=== PATIENT | female | born 1965 | race African-American/Black ===

== ENCOUNTER → 2019-12-23 14:32 | Outpatient (BNVA) | payer OTHER, SELFPAY | PROVIDERS: PCP Internal Medicine; Referring Provider Internal Medicine; Visit Provider Obstetrics & Gynecology | DX: Z76.89 Persons encountering health services in other specified circumstances (principal) ==

== ENCOUNTER → 2020-04-21 11:18 | Outpatient (BNVA) | payer OTHER, SELFPAY | PROVIDERS: PCP Internal Medicine; Visit Provider Obstetrics & Gynecology ==

== ENCOUNTER 2020-06-29 14:10 | Outpatient (REF) | payer OTHER, SELFPAY ==
--- NOTE | ~2020-06-29 | MM_ITS ---
EXAMINATION: MM SCREENING DIGITAL BREAST TOMOSYNTHESIS, BILATERAL CLINICAL INFORMATION: Screening. Asymptomatic. The lifetime risk of breast cancer based on the Tyrer-Cuzick Model is 11%. COMPARISON: Mammography: 07/18/2018, 09/21/2015, 01/27/2014, 08/15/2013 TECHNIQUE: Digital breast tomosynthesis is performed in both the craniocaudal and mediolateral oblique views along with computer-aided detection (CAD). Synthesized 2D images are generated from the tomosynthesis. Additional bilateral exaggerated CC views and additional bilateral MLO views are provided. FINDINGS: The breasts are almost entirely fatty (ACR BI-RADS breast composition Category a). There are no significant masses, abnormal calcifications, or other abnormalities. There are scattered bilateral round, rim, and dermal calcifications. The axilla are unremarkable. No significant changes. MM/MM tomosynthesis screening BI IMPRESSION: No mammographic evidence of malignancy. ASSESSMENT: BI-RADS 2: Benign RECOMMENDATION: Routine annual mammography screening. This patient's information was entered into a reminder system with a target due date for their next mammogram.
== END 2020-06-29 14:11 | disposition home or self-care (01) ==
LOC: HO.MAMMO 14:10
PROVIDERS: Visit Provider Obstetrics & Gynecology
DX: Z12.31 Encounter for screening mammogram for malignant neoplasm of breast (principal)
CPT/HCPCS: 77063; 77067

== ENCOUNTER 2020-07-01 10:01 | Outpatient (REF) | payer OTHER, SELFPAY | END 2020-07-01 10:02 | disposition home or self-care (01) | LOC: HO.XRAY 10:01 | PROVIDERS: Visit Provider Internal Medicine | DX: Z13.89 Encounter for screening for other disorder (principal) ==

== ENCOUNTER 2020-07-10 06:58 | Emergency (ER) | payer OTHER, SELFPAY ==
--- NOTE | 2020-07-10 07:13 | ED.FEMALEGU ---
HPI - Female Genitourinary General Chief complaint: Urogenital-Female Stated complaint: QUEST UTI Time Seen by Provider: 07/10/20 07:13 Source: patient Mode of arrival: ambulatory Limitations: no limitations History of Present Illness MD elicited complaint: dysuria, UTI and pelvic pain Onset (ago): day(s) (2) Severity: moderate Female Urogenital Radiation: Suprapubic, LLQ and LRQ Quality of pain: sharp Consistency: intermittent Vaginal bleeding: none Urinary symptoms: Dysuria, Urgency, Frequency and Difficulty Urinating Exacerbating factors: urination Relieving factors: none Associated symptoms: fever (99.1), nausea and vomiting Treatment prior to arrival: none Related Data Home Medications Medication Instructions Recorded Confirmed citalopram 20 mg tablet 20 mg PO DAILY 04/21/20 07/10/20 Previous Rx's Medication Instructions Recorded oxybutynin chloride 5 mg tablet 5 mg PO BID #180 tab 02/04/20 albuterol sulfate 90 mcg/actuation 2 inh INHALATION Q6H PRN 30 Days 03/04/20 breath activated powder inhaler #1 ea hydroxyzine HCl 25 mg tablet 25 mg PO Q8H #252 tab 04/29/20 cyclobenzaprine 10 mg tablet 10 mg PO TID PRN 30 Days #90 tab 06/30/20 cefuroxime axetil 500 mg PO BID 10 Days #20 tab 07/10/20 ondansetron 4 mg PO Q8H PRN #20 tab 07/10/20 Allergies Allergy/AdvReac Type Severity Reaction Status Date / Time ibuprofen Allergy Intermediate stomach Verified 06/30/20 13:47 upset Iodinated Contrast Media Allergy Intermediate THROAT Verified 06/30/20 13:47 [IV CONTRAST] ITCHING trazodone Allergy Intermediate headache Verified 06/30/20 13:47 Review of Systems Review of Systems: Constitutional : No Weight loss, pos Fever, pos Chills ENT/Mouth : No sore throat, No Rhinorrhea Eyes: No Swelling, No Redness Cardiovascular : No Chest Pain, No SOB, NoEdema Respiratory : No Cough, No Sputum, No Wheezing Gastrointestinal : Positive Nausea, Positive Vomiting, no Diarrhea, positive abdominal Pain, No Hematochezia, No Melena Genitourinary : pos Dysuria, pos Urinary Frequency, No Hematuria, pos Urgency Musculoskeletal : No joint pain, No Myalgias, No Joint Swelling Skin : No Skin Lesions, No rash Neuro : No Weakness, No Numbness, No Dizziness, No Headache Psych : No Anxiety/Panic, No Depression Heme/Lymph: No Bruising, No Lymphadenopathy Endocrine : No Polyuria, No Polydipsia All other systems reviewed and are negative. [facility] Past Medical History Attestation statement: The following information was validated with the patient. Medical History B12 deficiency Depression Dysphagia Hip pain History of Templeton's palsy Insomnia Surgical History H/O gastric bypass History of section History of removal of cyst History of splenectomy History of tubal ligation Family History Family History Father Hypertension CVD (cardiovascular disease) Diabetes Mother Heart problem Acute kidney failure Brother Aneurysm Family/Other FH: mental illness Maternal Grandmother Colon cancer Social History Social History Alcohol intake: never Smoked in Last 30 Days: No Use of substances other than those prescribed or required for medical reasons: No Advance Directives: Yes Advance Directives Information Provided: Yes Advance Directives on File: No Physical Exam Vital Signs: Vital Signs: Last Vital Signs Temp 98.7 F 07/10/20 07:19 Pulse 115 H 07/10/20 07:19 Resp 17 07/10/20 07:19 BP 125/88 07/10/20 07:19 Pulse Ox 98 07/10/20 07:19 Body Mass Index 43.4 Appearance: Alert. Oriented X3. No acute distress. Eyes: Pupils equal, round and reactive to light. ENT: Pharynx normal. Neck: Normal inspection. Neck supple. CVS: Normal heart rate and rhythm. Pulses normal. Respiratory: No respiratory distress. Breath sounds normal. Abdomen: Soft and mild suprapubic ttp, multiple scars noted Back: no CVA ttp Skin: Skin warm and dry. Normal skin color. Normal skin turgor. Extremities: No lower extremity edema. No calf ttp Neuro: Oriented X 3. No motor deficit. No sensory deficit. Course Course Course Narrative: patient alert and oriented, answering questions appropriately, declines IV at this time and does not want imaging or IV abx we discussed the reasons why I would prefer IV ceftriaxone and prefer CT scan but she still declines. MDM - Female Genitourinary MDM Narrative Medical decision making narrative: 54 yo female with hx of complicated bariatric surgery resulting in 1 year hospital stay and revisions comes in with c/o dysuria, nausea/vomiting x 1, no real fever temp of 99.1 - no CVA ttp at this time will obtain basic labs, CT scan for obstruction/stone, UA, IVF, IV morphine for pain, dispo per results and findings. Lab Data Labs: Lab Results 07/10/20 Range/Units 07:41 Urine Color YELLOW Urine Appearance CLOUDY Urine pH 6.0 (5.0-8.0) Ur Specific [place] 1.010 (1.005-1.025) Urine Protein TRACE (NEG-TRACE) MG/DL Urine Glucose (UA) NEG (NEG) MG/DL Urine Ketones NEG (NEG) MG/DL Urine Blood 1+ H (NEG) Urine Nitrite NEG (NEG) Ur Leukocyte Esterase 3+ H (NEG) Urine RBC 0-2 (0) /HPF Urine WBC 76-150 H (0-4) /HPF Ur Squamous Epith Cells 1+ /LPF Urine Bacteria 2+ /LPF Discharge Plan Discharge Clinical Impression: Urinary tract infection Qualifiers: Urinary tract infection type: acute cystitis Hematuria presence: with hematuria Qualified Code(s): N30.01 - Acute cystitis with hematuria Patient Disposition: Home, Self-Care Instructions: Urinary Tract Infection in Women (ED) Additional Instructions: return to ED for any worsening symptoms or concerns return at any time if you feel worse Prescriptions: New cefuroxime axetil 500 mg tablet 500 mg PO BID 10 Days Qty: 20 RF: 0 ondansetron 4 mg tablet,disintegrating 4 mg PO Q8H PRN (Reason: nausea and vomiting) Qty: 20 RF: 0 No Action oxybutynin chloride 5 mg tablet 5 mg PO BID Qty: 180 RF: 1 ProAir RespiClick 90 mcg/actuation aerosol powdr breath activated 2 inh inhalation Q6H PRN (Reason: shortness of breath or wheezing) 30 Days Qty: 1 RF: 6 hydroxyzine HCl 25 mg tablet 25 mg PO Q8H Qty: 252 RF: 3 cyclobenzaprine 10 mg tablet 10 mg PO TID PRN (Reason: muscle spasm) 30 Days Qty: 90 RF: 4 citalopram [Celexa] 20 mg tablet 20 mg PO DAILY RF: 0
[2020-07-10 07:19] VITALS: BP 125/88; PULSE 115; RESP 17; TEMP 37.1; O2SAT 98; BMI 43.4
[2020-07-10 07:57] LABS: Glucose Urine UA NEG (NEG); Leukocyte Esterase Urine 3+ (NEG); Nitrite Urine NEG (NEG); UACC Culture Trigger YES; Urine Blood 1+ (NEG); Urine Ketones NEG (NEG); Urine Protein TRACE MG/DL (NEG-TRACE)
[2020-07-10 07:58] LABS: Appearance Urine CLOUDY; Color Urine YELLOW
--- NOTE | 2020-07-10 08:00 | PC.NURSE ---
Pt refuses morphine and zofran. 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
[2020-07-10 08:05] LABS: Bacteria Urine 2+ /LPF; RBC Urine 0-2 /HPF (0); Squamous Epithelial Cell Urine 1+ /LPF
--- NOTE | 2020-07-10 08:15 | PC.NURSE ---
Patient allows blood to be drawn but refuses iv. doctor is aware
[2020-07-10 08:30] LABS: MANUAL DIFF FLAG NO
[2020-07-10 08:34] LABS: Basophils Percent Auto 0.2 % (0-2); Eosinophils Percent Auto 0.2 % (0-4); Hematocrit 33.9 % (37-47); Hemoglobin 11.5 g/dl (12.0-16.0); Imm Gran Abs Auto 0.01 X10*3/uL (0.00-0.03); Imm Gran Pct Auto 0.2 % (0.0-0.4); Lymphocytes Absolute Auto 1.3 X10*3/uL (1.2-4.9); Lymphocytes Percent Auto 19.6 % (20-40); Mean Corpuscular HGB Conc 33.9 g/dl (31.0-35.0); Mean Corpuscular Hemoglobin 30.7 pg (27.0-33.0); Mean Corpuscular Volume 90.4 fL (80-98); Mean Platelet Volume 9.2 fL (9.4-12.3); Monocytes Absolute Auto 0.5 X10*3/uL (0.1-1.2); Monocytes Percent Auto 7.8 % (2-11); Neutrophils Absolute Auto 4.7 X10*3/uL (2.0-8.3); Platelet Count 308 X10*3/uL (160-400); Red Blood Count 3.75 X10*6/uL (4.20-5.50); Red Cell Distribution Width 16.7 % (11.0-16.0); White Blood Count 6.5 X10*3/uL (4.8-10.8)
[2020-07-10 08:57] LABS: Alanine Aminotransferase 18 U/L (0-31); Albumin Level 3.8 g/dL (3.5-5.0); Alkaline Phosphatase 129 U/L (39-117); Anion Gap 13 (12-20); Aspartate Amino Transferase 14 U/L (5-31); Bilirubin Direct 0.3 mg/dL (0.0-0.5); Bilirubin Total 0.6 mg/dL (0.0-1.0); Blood Urea Nitrogen 9 mg/dL (9-16); Calcium 8.7 mg/dL (8.4-10.2); Carbon Dioxide 26 mmol/L (22-29); Chloride 105 mmol/L (96-108); Creatinine Clr Calc Pharmacy 109.1; Estimated Glomerular Filt Rate > 60; Glucose Random 85 mg/dL (60-115); Lipase 14 U/L (8-78); Magnesium 2.2 mg/dL (1.6-2.6); Potassium 3.6 mmol/L (3.3-5.1); Sodium 140 mmol/L (135-145); Total Protein 6.9 g/dL (6.5-8.0)
--- NOTE | 2020-07-10 09:15 | PC.NURSE ---
Discharge instructions given to pt who verbalized understanding and denies any questions.
== END 2020-07-10 09:16 | disposition home or self-care (01) ==
PROVIDERS: Emergency Provider Emergency Medicine; PCP Internal Medicine
DX: N30.01 Acute cystitis with hematuria (principal); R50.9 Fever, unspecified; R11.2 Nausea with vomiting, unspecified; Z98.84 Bariatric surgery status; Z98.51 Tubal ligation status; Z90.81 Acquired absence of spleen
CPT/HCPCS: 36415; 80048; 80076; 81001; 81003; 83690; 83735; 85025; 87040; 87077; 87086; 87088; 87186; 87205; 99283; 99284

== ENCOUNTER 2020-07-30 11:04 | Emergency (ER) | payer OTHER, SELFPAY ==
[2020-07-30 11:43] VITALS: BP 117/81; PULSE 98; RESP 18; TEMP 36.6; O2SAT 99; BMI 42.7
--- NOTE | 2020-07-30 12:36 | ED_ITS ---
HPI - Female Genitourinary General Chief complaint: Recheck/Abnormal Lab/Rx Stated complaint: abnormal labs Time Seen by Provider: 07/30/20 12:24 Source: patient and old records reviewed Mode of arrival: ambulatory Limitations: no limitations History of Present Illness HPI Narrative: 54 yo female with hx of urinary urgency recently treated on 07/10 with cefuroxime for 14 days with 1/2 E. Coli she has been doing great since then no fevers, nausea/vomiting, flank pain, urinary symptoms, sent by PCP for ?repeat cultures though the patient completed 14 days of antibiotics and has no symptoms at this time at this time other than white vaginal discharge and itching MD elicited complaint: vaginal discharge and genital itching Pertinent past history: other (recent antibiotics) Onset (ago): day(s) (several days) Vaginal discharge: white Vaginal bleeding: none Exacerbating factors: none Relieving factors: none Associated symptoms: denies other symptoms Treatment prior to arrival: OTC vaginal cream Related Data Home Medications Medication Instructions Recorded Confirmed citalopram 20 mg tablet 20 mg PO DAILY 04/21/20 07/29/20 fluticasone 113 mcg-salmeterol 14 1 inh INHALATION BID 07/29/20 07/29/20 mcg/actuation breath activated powdr fluticasone propionate 50 1 spray INTRANASAL DAILY 07/29/20 07/29/20 mcg/actuation nasal spray,suspension Previous Rx's Medication Instructions Recorded oxybutynin chloride 5 mg tablet 5 mg PO BID #180 tab 02/04/20 albuterol sulfate 90 mcg/actuation 2 inh INHALATION Q6H PRN 30 Days 03/04/20 breath activated powder inhaler #1 ea hydroxyzine HCl 25 mg tablet 25 mg PO Q8H #252 tab 04/29/20 cyclobenzaprine 10 mg tablet 10 mg PO TID PRN 30 Days #90 tab 06/30/20 ondansetron 4 mg PO Q8H PRN #20 tab 07/10/20 fluconazole [Diflucan] 150 mg PO DAILY #1 tab 07/30/20 Allergies Allergy/AdvReac Type Severity Reaction Status Date / Time cefuroxime Allergy Intermediate rash Verified 07/29/20 11:56 ibuprofen Allergy Intermediate stomach Verified 07/29/20 11:51 upset Iodinated Contrast Media Allergy Intermediate THROAT Verified 07/29/20 11:51 [IV CONTRAST] ITCHING trazodone Allergy Intermediate headache Verified 07/29/20 11:51 Review of Systems Review of Systems: Constitutional : No Weight loss, No Fever, No Chills, No Fatigue, No Malaise ENT/Mouth : No sore throat, No Rhinorrhea Eyes: No Eye Pain, No Swelling, No Redness Cardiovascular : No Chest Pain, No SOB, No Dyspnea on Exertion, No Orthopnea, No Edema, No Palpitations Respiratory : No Cough, No Sputum, No Wheezing Gastrointestinal : No Nausea, No Vomiting, No Diarrhea, No Constipation, No abdominal Pain, No Hematochezia, No Melena Genitourinary : No Dysuria, No Urinary Frequency, No Hematuria, pos vaginal discharge white and itchy Musculoskeletal : No joint pain, No Myalgias, No Joint Swelling Skin : No Skin Lesions, pos rash Neuro : No Weakness, No Numbness, No Dizziness, No Headache Psych : No Anxiety/Panic, No Depression Heme/Lymph: No Bruising, No Bleeding,No Lymphadenopathy Endocrine : No Polyuria, No Polydipsia All other systems reviewed and are negative [facility] Past Medical History Attestation statement: The following information was validated with the patient. Medical History B12 deficiency Bacteremia Depression Dysphagia Hip pain History of Templeton's palsy Insomnia Surgical History H/O gastric bypass History of section History of removal of cyst History of splenectomy History of tubal ligation Family History Family History (Updated 07/29/20 @ 11:44 by CARA Harrison) Father Hypertension CVD (cardiovascular disease) Diabetes Mother Heart problem Acute kidney failure Brother Aneurysm Family/Other FH: mental illness Substance use disorder Maternal Grandmother Colon cancer Social History Social History Housing: House Alcohol intake: never Patient Tobacco Use Status: Never used Tobacco e-Cigarette/Vaping Use: Never Used Second Hand Smoke Exposure: No Patient : No service: No Current occupational status: unemployed Physical Exam 2 Vital Signs: Vital Signs: Last Vital Signs Temp 98 F 07/30/20 11:43 Pulse 98 07/30/20 11:43 Resp 18 07/30/20 11:43 BP 117/81 07/30/20 11:43 Pulse Ox 99 07/30/20 11:43 Body Mass Index 42.7 Appearance: Alert. Oriented X3. No acute distress. Eyes: Pupils equal, round and reactive to light. ENT: Pharynx normal. Neck: Normal inspection. Neck supple. flat shiny L sided linear lesions no vesicles, darker in color CVS: Normal heart rate and rhythm. Pulses normal. Respiratory: No respiratory distress. Breath sounds normal. Abdomen: Soft and nontender. Skin: Skin warm and dry. Normal skin color. Normal skin turgor. Extremities: No lower extremity edema. No calf ttp Neuro: Oriented X 3. No motor deficit. No sensory deficit. MDM - Female Genitourinary MDM Narrative Medical decision making narrative: 54 yo female with hx of urinary urgency recently treated on 07/10 with cefuroxime for 14 days with 1/2 E. Coli she has been doing great since then no fevers, nausea/vomiting, flank pain, urinary symptoms, sent by PCP for ?repeat cultures though the patient completed 14 days of antibiotics and has no symptoms at this time no signs of sepsis - at this time will repeat cultures and start on diflucan given her white discharge and vaginal itching, patient agrees, also c/o L neck resolving dermatitis rash - no signs of zoster or cellulitis Discharge Plan Discharge Clinical Impression: Candidiasis of vagina, Dermatitis Patient Disposition: Home, Self-Care Instructions: Yeast Infection (ED), Dermatitis (ED) Additional Instructions: return to ED for any worsening symptoms or concerns repeat blood cultures sent off if positive we will contact you Prescriptions: New fluconazole [Diflucan] 150 mg tablet 150 mg PO DAILY Qty: 1 RF: 0 No Action oxybutynin chloride 5 mg tablet 5 mg PO BID Qty: 180 RF: 1 ProAir RespiClick 90 mcg/actuation aerosol powdr breath activated 2 inh inhalation Q6H PRN (Reason: shortness of breath or wheezing) 30 Days Qty: 1 RF: 6 hydroxyzine HCl 25 mg tablet 25 mg PO Q8H Qty: 252 RF: 3 ondansetron 4 mg tablet,disintegrating 4 mg PO Q8H PRN (Reason: nausea and vomiting) Qty: 20 RF: 0 cyclobenzaprine 10 mg tablet 10 mg PO TID PRN (Reason: muscle spasm) 30 Days Qty: 90 RF: 4 fluticasone propionate 50 mcg/actuation spray,suspension 1 spray intranasal DAILY RF: 0 fluticasone propion-salmeterol 113-14 mcg/actuation aerosol powdr breath activated 1 inh inhalation BID RF: 0 citalopram [Celexa] 20 mg tablet 20 mg PO DAILY RF: 0
[2020-07-30] MEDS: Fluconazole 150 MG TABLET PO (13:35)
== END 2020-07-30 13:41 | disposition home or self-care (01) ==
LOC: HO.ED 12:58
PROVIDERS: Emergency Provider Emergency Medicine; PCP Internal Medicine
DX: B37.3 Candidiasis of vulva and vagina (principal); L30.9 Dermatitis, unspecified
CPT/HCPCS: 87040; 99283

== ENCOUNTER 2020-08-10 09:20 | Outpatient (REF) | payer OTHER, SELFPAY ==
--- NOTE | ~2020-08-10 | FL_ITS ---
EXAMINATION: FL BARIUM SWALLOW CLINICAL INFORMATION: Dysphagia COMPARISON: None TECHNIQUE: Barium swallow examination is performed using fluoroscopic evaluation in addition to multiple fluoroscopic spot views. The patient is imaged both upright and prone and using both thick and thin sulfate along with effervescent granules. Fluoroscopy time: 3.2 minutes DAP: 6.2 Gycm2 Images: 48 FINDINGS: Following oral administration of thick barium there is normal propagation of bolus from the oral cavity into the pharynx, stomach and small bowel. There is a prominent cervical esophageal web along the anterior wall partially obstructing the passage of thick barium. On oral administration of barium-coated turkey there is normal but slow mastication of the oral phase. On bolus reaching the posterior tongue there is slow antegrade flow seen through the esophagus into the stomach. Again visualized are prominent cervical esophageal web partially obstructing. There is complete obstruction to barium tablet in the cervical esophagus in the area of the cervical. It took quite a while for the barium tablet to be dissolved following oral administration of water for at least by 10-15 minutes. No hiatal hernia seen. There is no gastroesophageal reflux. FL/FL barium swallow IMPRESSION: Moderate-sized anterior cervical wall esophageal web causing moderate obstruction to liquids and barium tablet. Slow oral mastication likely secondary to fear of obstruction in the esophagus. Patient does regurgitate solid food when obstructed and this was seen during the present exam.
== END 2020-08-10 09:21 | disposition home or self-care (01) ==
LOC: HO.XRAY 09:20
PROVIDERS: PCP Internal Medicine; Visit Provider Internal Medicine
DX: R13.10 Dysphagia, unspecified (principal)
CPT/HCPCS: 74220

== ENCOUNTER 2020-11-11 16:32 | Emergency (ER) | payer OTHER, SELFPAY ==
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
[2020-11-11 17:30] VITALS: BP 148/89; PULSE 73; RESP 18; TEMP 36.6; O2SAT 100; BMI 41.6
[2020-11-11] MEDS: Cyclobenzaprine HCl 10 MG TABLET PO (18:47)
[2020-11-11] MEDS: Acetaminophen 325 MG TABLET 975 MG PO (18:47)
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
== END 2020-11-11 20:14 | disposition home or self-care (01) ==
PROVIDERS: Emergency Provider Internal Medicine; PCP Internal Medicine
DX: M54.5 Low back pain (principal); M25.551 Pain in right hip; Z79.899 Other long term (current) drug therapy
CPT/HCPCS: 72100; 73502; 99283; 99284

== ENCOUNTER → 2021-04-23 10:10 | Outpatient (BNVA) | payer OTHER, SELFPAY | PROVIDERS: PCP Internal Medicine; Referring Provider Internal Medicine; Visit Provider Nurse Practitioner | DX: K21.9 Gastro-esophageal reflux disease without esophagitis (principal); K22.2 Esophageal obstruction; R11.10 Vomiting, unspecified; R13.19 Other dysphagia | CPT/HCPCS: 99202 ==

== ENCOUNTER 2021-05-03 08:49 | Outpatient (REF) | payer OTHER, SELFPAY ==
[2021-05-03 09:31] LABS: MANUAL DIFF FLAG NO
[2021-05-03 09:51] LABS: Basophils Percent Auto 0.2 % (0-2); Hematocrit 35.4 % (37.0-47.0); Hemoglobin 11.5 g/dl (12.0-16.0); Imm Gran Abs Auto 0.01 X10*3/uL (0.00-0.03); Imm Gran Pct Auto 0.2 % (0.0-0.4); Lymphocytes Absolute Auto 1.8 X10*3/uL (1.2-4.9); Lymphocytes Percent Auto 35.1 % (20-40); Mean Corpuscular HGB Conc 32.5 g/dl (31.0-35.0); Mean Corpuscular Hemoglobin 30.5 pg (27.0-33.0); Mean Corpuscular Volume 93.9 fL (80.0-98.0); Mean Platelet Volume 8.5 fL (9.4-12.3); Monocytes Absolute Auto 0.4 X10*3/uL (0.1-1.2); Monocytes Percent Auto 7.8 % (2-11); NRBC Pct Auto 0.8 /100WBC (0.0-0.2); Neutrophils Absolute Auto 2.9 x10*3/uL (2.0-8.3); Neutrophils Percent Auto 56.7 % (45-73); Platelet Count 262 X10*3/uL (160-400); Red Blood Count 3.77 X10*6/uL (4.20-5.50); Red Cell Distribution Width 16.4 % (11.0-16.0); White Blood Count 5.1 X10*3/uL (4.8-10.8)
[2021-05-03 10:37] LABS: Alanine Aminotransferase 18 U/L (0-31); Alkaline Phosphatase 101 U/L (39-117); Anion Gap 13 (12-20); Aspartate Amino Transferase 14 U/L (5-31); Bilirubin Total 0.6 mg/dL (0.0-1.0); Blood Urea Nitrogen 12 mg/dL (9-16); Calcium 8.9 mg/dL (8.4-10.2); Carbon Dioxide 26 mmol/L (22-29); Chloride 106 mmol/L (96-108); Cholesterol 182 mg/dL; Estimated Glomerular Filt Rate > 60; Glucose Fasting 85 mg/dL (60-99); HDL Cholesterol 82 mg/dL; Iron 81 mcg/dL (30-160); LDL Cholesterol Calculated 92 mg/dl; Percent Iron Saturation 21 % (15-50); Potassium 3.8 mmol/L (3.3-5.1); Sodium 141 mmol/L (135-145); Total Iron Binding Capacity 378 mcg/dL (228-428); Total Protein 6.9 g/dL (6.5-8.0); Triglycerides 41 mg/dL; Unsaturated Iron Binding 297 ug/dL
[2021-05-03 11:00] LABS: Folate 17.6 ng/mL (> or = 4.0); Vitamin B12 602 pg/mL (200-900)
[2021-05-07 13:52] LABS: Vitamin D 25-OH, D2 <4 ng/mL; Vitamin D 25-OH, D3 19 ng/mL; Vitamin D 25-OH, Total 19 ng/mL (30-100)
== END 2021-05-03 08:50 | disposition home or self-care (01) ==
LOC: HO.LAB 08:49
PROVIDERS: Nurse Practitioner Acute Care; PCP Internal Medicine; Visit Provider Internal Medicine
DX: D64.9 Anemia, unspecified (principal); M25.559 Pain in unspecified hip; E78.5 Hyperlipidemia, unspecified; E53.8 Deficiency of other specified B group vitamins; E55.9 Vitamin D deficiency, unspecified
CPT/HCPCS: 36415; 80053; 80061; 82306; 82607; 82746; 83540; 85025

== ENCOUNTER 2021-06-03 19:02 | Emergency (ER) | payer OTHER, SELFPAY ==
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
--- NOTE | ~2021-06-03 | CT_ITS ---
EXAMINATION: CT LUMBAR SPINE WITHOUT CONTRAST CLINICAL INFORMATION: Low back pain. COMPARISON: Radiographs from the same date and CT dated 04/05/2017 TECHNIQUE: Multidetector volumetric imaging was obtained through the lumbar spine without contrast. Multiplanar reformatted images in coronal and sagittal orientations were submitted. This CT examination was performed using dose optimization techniques as appropriate, variously including the following: *Automated exposure control *Adjustment of mA and/or kV according to patient size (this includes techniques or standardized protocols for targeted exams where dose is matched to indication/reason for exam; i.e. extremities or head) *Use of iterative reconstruction technique DLP; 319 mGy-cm FINDINGS: Vertebral body heights are normal. No fracture or spondylolisthesis. No aggressive osseous lesions are identified. There is mild osteoarthritis in the imaged portions of the SI joints. Moderate degenerative disc disease is present in the at L4-L5 and L5-S1 with loss of intervertebral disc height, vacuum phenomenon, endplate irregularity, and endplate osteophytes. More mild degenerative disc disease at L3-L4. There is moderate to severe facet arthropathy on the right at L4-L5 and L5-S1 more moderate facet arthropathy at L3-L4. Mild facet arthropathy is present at other levels. A punctate calculus is evident in the left kidney. No obstructing stones are identified on these images. No hydronephrosis. Anastomotic aleksandra are present within the bowel. Spinal levels: L1-L2: No central canal or neural foraminal encroachment. Intervertebral disc appears relatively well-preserved. L2-L3: No central canal or neural foraminal encroachment. Intervertebral disc appears relatively well-preserved. L3-L4: Mild degenerative disc disease with a mild annular bulge producing indentation of the ventral thecal sac. No neural foraminal encroachment. Mild left and moderate right facet arthropathy. L4-L5: Mild to moderate degenerative disc disease with moderate to severe right facet arthropathy and more mild to moderate left facet arthropathy. There is a diffuse disc bulge which is asymmetric to the left, similar to the prior CT. This produces mild to moderate central canal stenosis with narrowing of the subarticular zones bilaterally as well as mild to moderate neural foraminal encroachment, right side greater than left . The bulge is similar in appearance to the prior study from 2018. L5-S1: Moderate degenerative disc disease. There is a left paracentral disc osteophytic protrusion which likely produces mass effect upon the traversing left S1 nerve root in the subarticular zone. This is evident on the prior study as well. There is mild left neural foraminal encroachment. More moderate to severe right neural foraminal encroachment is produced by a prominent right sided foraminal disc osteophyte complex. No prior. CT/CT lumbar spine wo con IMPRESSION: Multilevel degenerative disc disease in the lumbar spine, most notably at L4 L5 S1 with moderate to severe right-sided facet arthropathy at these levels. This appearance is similar to the prior study from 2018. Marked right L5-S1 neural foraminal encroachment at L5-S1 due to foraminal disc osteophyte complex, unchanged. Mass effect on the left S1 nerve root in the subarticular zone at this level is produced by a disc osteophytic protrusion and is also unchanged. Generalized disc bulge at L4-L5 with produces mild to moderate central canal stenosis with narrowing of the bilateral subarticular zones (L5 nerve root) as well as bilateral neural foraminal encroachment, not appreciably changed. No acute fracture or acute malalignment in the lumbar spine.
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
[2021-06-03 19:24] VITALS: BP 128/86; PULSE 82; RESP 18; TEMP 36.4; O2SAT 94; BMI 43.4
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
[2021-06-03] MEDS: Ketorolac Tromethamine 15 MG/ML VIAL 30 MG IM (23:31)
[2021-06-03] MEDS: Lidocaine 4 % Patch ADH..PATCH 1 PATCH TRANSDERMA (23:32)
[2021-06-03 23:44] VITALS: BP 130/85; PULSE 87; RESP 18; TEMP 36.6; O2SAT 96
--- NOTE | 2021-06-04 00:21 | PC.NURSE ---
Discharge pt for SARAY Fam, Review discharge instructions. pt verbalized understanding. pt discharged home.
== END 2021-06-04 00:22 | disposition home or self-care (01) ==
PROVIDERS: Emergency Provider Internal Medicine; PCP Internal Medicine
DX: M54.42 Lumbago with sciatica, left side (principal); M54.41 Lumbago with sciatica, right side; M54.2 Cervicalgia; R51.9 Headache, unspecified; Z79.899 Other long term (current) drug therapy
CPT/HCPCS: 70450; 72125; 72131; 96372; 99284; J1885

== ENCOUNTER 2021-07-05 12:58 | Outpatient (REF) | payer OTHER, SELFPAY ==
--- NOTE | ~2021-07-05 | MM_ITS ---
EXAMINATION: MM SCREENING DIGITAL BREAST TOMOSYNTHESIS, BILATERAL CLINICAL INFORMATION: Screening. Asymptomatic. The lifetime risk of breast cancer based on the Tyrer-Cuzick Model is 10%. COMPARISON: Mammography: 06/29/2020, 07/18/2018, 09/21/2015 TECHNIQUE: Digital breast tomosynthesis is performed in both the craniocaudal and mediolateral oblique views along with computer-aided detection (CAD). Synthesized 2D images are generated from the tomosynthesis. Additional bilateral CC views are provided. FINDINGS: The breasts are almost entirely fatty (ACR BI-RADS breast composition Category a). Background stromal and fibroglandular densities are stable. There is no interval mass or architectural abnormality. Again, there are scattered bilateral benign round, rim, as well as dermal calcifications grouped posterior medial inferior breasts. The axilla are unremarkable. There are no significant changes. MM/MM tomosynthesis screening BI IMPRESSION: No mammographic evidence of malignancy. ASSESSMENT: BI-RADS 2: Benign RECOMMENDATION: Routine annual mammography screening. This patient's information was entered into a reminder system with a target due date for their next mammogram.
== END 2021-07-05 12:59 | disposition home or self-care (01) ==
LOC: HO.MAMMO 12:58
PROVIDERS: PCP Internal Medicine; Visit Provider Obstetrics & Gynecology
DX: Z12.31 Encounter for screening mammogram for malignant neoplasm of breast (principal); K22.2 Esophageal obstruction; K21.9 Gastro-esophageal reflux disease without esophagitis; R13.19 Other dysphagia; K90.89 Other intestinal malabsorption
CPT/HCPCS: 77063; 77067; 99212

== ENCOUNTER 2021-08-04 13:00 | Outpatient (RCR) | payer OTHER, SELFPAY ==
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
== END 2021-09-03 11:33 | disposition home or self-care (01) ==
LOC: HO.PTWFD 13:00
PROVIDERS: Visit Provider Internal Medicine
DX: M54.50 Low back pain, unspecified (principal)
CPT/HCPCS: 97110; 97162; 97530; 97535

== ENCOUNTER 2021-08-06 20:24 | Emergency (ER) | payer OTHER, SELFPAY | END 2021-08-06 21:42 | disposition left against medical advice (07) | PROVIDERS: Emergency Provider Emergency Medicine; PCP Internal Medicine | DX: H92.09 Otalgia, unspecified ear (principal) ==

== ENCOUNTER 2021-10-07 13:48 | Outpatient (REF) | payer OTHER, SELFPAY ==
[2021-10-08 13:08] LABS: Influenza A PCR NEGATIVE (Negative); Influenza B PCR NEGATIVE (Negative); Resp Syncy Virus RNA Qual PCR NEGATIVE (Negative); SARS COV2 PCR INHOUSE NEGATIVE (Negative)
== END 2021-10-07 13:49 | disposition home or self-care (01) ==
LOC: HO.LNP 13:48
PROVIDERS: Visit Provider Hospitalist
DX: Z20.822 Contact with and (suspected) exposure to COVID-19 (principal)
CPT/HCPCS: 0241U

== ENCOUNTER 2021-10-09 09:59 | Emergency (ER) | payer OTHER, SELFPAY ==
[2021-10-09 10:07] VITALS: BP 126/96; PULSE 104; RESP 17; TEMP 36.2; O2SAT 99; BMI 38.0
[2021-10-09 10:38] LABS: COVID-19 Test Negative (Negative); IDNOW Serial# 16C4AD1C
--- NOTE | 2021-10-09 10:46 | ED.GENADULT ---
HPI - General Adult General Chief complaint: General Medical Stated complaint: Facial swelling/Fever Time Seen by Provider: 10/09/21 10:17 Source: patient Mode of arrival: ambulatory Limitations: no limitations History of Present Illness HPI narrative: Patient presents emergency department for evaluation of upper respiratory symptoms. She states for about 1 week she has been feeling unwell. Grandchildren have been sick with similar symptoms. She has developed nasal congestion, intermittent fevers. Since yesterday she has been feeling pain and swelling to the right side of her face particularly lateral to her nose. She did take Tylenol earlier this morning with some relief of her pain. Has green nasal discharge. Denies chills, neck pain, neck stiffness, chest pain, shortness of breath, difficulty breathing. Related Data Home Medications Medication Instructions Recorded Confirmed citalopram 20 mg tablet (Celexa) 20 mg PO DAILY 04/21/20 10/05/21 Previous Rx's Medication Instructions Recorded hydroxyzine HCl 25 mg tablet 25 mg PO Q8H #252 tabs 04/29/20 ondansetron 4 mg disintegrating 4 mg PO Q8H PRN nausea and 07/10/20 tablet vomiting #20 tabs acetaminophen 500 mg tablet 1,000 mg PO QID PRN fever or pain 11/11/20 (Tylenol Extra Strength) #14 tabs albuterol sulfate 90 mcg/actuation 2 inh inhalation Q6H PRN shortness 03/09/21 breath activated powder inhaler of breath or wheezing 30 days #1 ea (ProAir RespiClick) fluticasone 113 mcg-salmeterol 14 1 inh inhalation BID 30 days #1 ea 04/27/21 mcg/actuation breath activated powdr mecobalamin (vitamin B12) 1,000 1,000 mcg sublingual BEDTIME 90 04/27/21 mcg disintegrating days #90 tabs tablet,sublingual cholecalciferol (vitamin D3) 25 25 mcg PO DAILY 90 days #90 caps 06/08/21 mcg (1,000 unit) capsule fluticasone propionate 50 1 spray intranasal DAILY 30 days 06/12/21 mcg/actuation nasal #32 mL spray,suspension pantoprazole 40 mg tablet,delayed 40 mg PO BID 30 days #60 tabs 07/05/21 release (Protonix) sucralfate 1 gram tablet (Carafate) 1 g PO QNOON #30 tabs 07/05/21 oxybutynin chloride 5 mg tablet 5 mg PO BID #180 tabs 08/16/21 cyclobenzaprine 10 mg tablet 10 mg PO TID PRN muscle spasm 30 08/23/21 days #90 tabs amoxicillin 875 mg-potassium 1 tab PO Q12H 7 days #14 tabs 10/09/21 clavulanate 125 mg tablet Allergies Allergy/AdvReac Type Severity Reaction Status Date / Time cefuroxime Allergy Intermediate rash Verified 10/07/21 14:34 ibuprofen Allergy Intermediate stomach Verified 10/07/21 14:34 upset Iodinated Contrast Media Allergy Intermediate THROAT Verified 10/07/21 14:34 [IV CONTRAST] ITCHING trazodone Allergy Intermediate headache Verified 10/07/21 14:34 Review of Systems Review of Systems: Constitutional: No fever. No chills. No weakness. Positive fatigue. ENT/ Mouth: No Ear Pain, positive Nasal Congestion, positive sore throat, No Rhinorrhea, No Swallowing Difficulty Skin: No rash or itching. Cardiovascular: No chest pain. No palpitations. Respiratory: No shortness of breath. No cough. No sputum production. Gastrointestinal: No nausea. No vomiting. No diarrhea. No abdominal pain. Genitourinary: No burning micturition. No urinary frequency. Neurologic: No headache. No dizziness. No syncope. No numbness or tingling in the extremities. Musculoskeletal: No muscle pain. No back pain. No joint pain or stiffness. Yes all other systems are reviewed and are negative PMFSH Past Medical History Attestation statement: The following information was validated with the patient. Source: old records reviewed Medical History B12 deficiency Bacteremia Depression Dysphagia FABIAN (generalized anxiety disorder) Hip pain History of Templeton's palsy Hypovitaminosis D Insomnia Left foot pain Low back pain Mild recurrent major depression Moderate asthma Morbid obesity with BMI of 40.0-44.9, adult Urge urinary incontinence Surgical History H/O gastric bypass History of section History of colonoscopy History of endoscopy History of removal of cyst History of splenectomy History of tubal ligation Family History Family History Father Hypertension CVD (cardiovascular disease) Diabetes Mother Heart problem Acute kidney failure Brother Aneurysm Family/Other FH: mental illness Substance use disorder Maternal Grandmother Colon cancer Social History Social History Housing: House Alcohol intake: never Patient Tobacco Use Status: Never used Tobacco e-Cigarette/Vaping Use: Never Used Second Hand Smoke Exposure: No Advance Directives: Yes Advance Directives Information Provided: Yes Advance Directives on File: No service: No Current occupational status: unemployed Cognitive needs: No Hearing needs: No Vision needs: No Physical Exam ED Vital Signs: Vital Signs - 24 hr 10/09/21 10:07 Temperature 97.2 F Pulse Rate 104 H Respiratory Rate 17 Blood Pressure 126/96 H Pulse Oximetry 99 Oxygen Delivery Method Room Air BMI result Body Mass Index 38.0 Appearance: Alert.?Oriented to person, place and time. No acute distress.?Normal affect. Eyes: Pupils equal, round and reactive to light.? ENT: Pharynx normal.??Right maxillary sinus tenderness upon palpation TM normal bilaterally. Neck: Normal inspection.? Neck supple.?? CVS: Heart sounds normal. Normal heart rate and rhythm.? Pulses normal.?? Respiratory: No respiratory distress.? Lung sounds clear to auscultation bilaterally?? Abdomen: Soft and non-tender. Normoactive bowel sounds. No pulsatile mass.?? Skin: Skin warm and dry.? Normal skin color.? Extremities: No lower extremity edema.? Neuro: Moves all extremities spontaneously. Sensation intact bilaterally. No motor deficits Ambulates with normal steady gait. Course Course Course Narrative: Patient is a 56-year-old female presenting for evaluation of upper respiratory symptoms. COVID-19 testing negative. Physical exam consistent with acute maxillary sinusitis, not consistent with pneumonia. Well-appearing, nontoxic, afebrile, no tachypnea/hypoxia. Speaking clear full sentences, ambulatory with steady gait. Discussed conservative treatment including rest, hydration, Tylenol/ibuprofen as needed for fever and body aches, saline nasal spray, humidifier, pkli-axe-[id number] cold medication and provided with prescription for Augmentin. Advised to follow-up with primary care provider as needed, discussed reasons to return back to the emergency department. All questions were answered. Patient discharged home in stable condition. Medical Decision Making Medical Records Medical records reviewed: Yes I reviewed the patient's medical records. Lab Data Lab results reviewed: Yes I reviewed the patient's lab results. Labs: Lab Results 10/09/21 Range/Units 10:16 COVID-19 (BOB) Negative (Negative) COVID-19 Clin Com See Note Discharge Plan Discharge Clinical Impression: Acute maxillary sinusitis Patient Disposition: Home, Self-Care Instructions: Sinusitis (ED) Additional Instructions: You have been given a prescription for an antibiotic to treat your sinus infection, please complete this entire course. Your COVID-19 testing today was negative. Be sure to rest, stay well hydrated drinking plenty of fluids, eat small frequent meals. Tylenol/ibuprofen can be used as needed for fever/pain. Nzxr-jrb-[id number] cold medications may be helpful as well for symptoms. Saline nasal spray, humidifier may be helpful for nasal congestion. You may return to the emergency department with any new or worsening symptoms or concerns. Follow-up with your primary care provider as needed. Prescriptions: New amoxicillin-pot clavulanate 875-125 mg tablet 1 tab PO Q12H 7 Days Qty: 14 0RF No Action hydroxyzine HCl 25 mg tablet 25 mg PO Q8H Qty: 252 3RF fluticasone propion-salmeterol 113-14 mcg/actuation aerosol powdr breath activated 1 inh inhalation BID 30 Days Qty: 1 2RF mecobalamin (vitamin B12) 1,000 mcg tablet,disintegrating 1,000 mcg sublingual BEDTIME 90 Days Qty: 90 1RF Rx Instructions: place tablet under tongue and allow to dissolve for at least30 secs before swallowing cholecalciferol (vitamin D3) 25 mcg (1,000 unit) capsule 25 mcg PO DAILY 90 Days Qty: 90 1RF fluticasone propionate 50 mcg/actuation spray,suspension 1 spray intranasal DAILY 30 Days Qty: 32 2RF oxybutynin chloride 5 mg tablet 5 mg PO BID Qty: 180 1RF cyclobenzaprine 10 mg tablet 10 mg PO TID PRN (Reason: muscle spasm) 30 Days Qty: 90 4RF ondansetron 4 mg tablet,disintegrating 4 mg PO Q8H PRN (Reason: nausea and vomiting) Qty: 20 0RF acetaminophen [Tylenol Extra Strength] 500 mg tablet 1,000 mg PO QID PRN (Reason: fever or pain) Qty: 14 0RF ProAir RespiClick 90 mcg/actuation aerosol powdr breath activated 2 inh inhalation Q6H PRN (Reason: shortness of breath or wheezing) 30 Days Qty: 1 6RF citalopram [Celexa] 20 mg tablet 20 mg PO DAILY sucralfate [Carafate] 1 gram tablet 1 g PO QNOON Qty: 30 6RF pantoprazole [Protonix] 40 mg tablet,delayed release (DR/EC) 40 mg PO BID 30 Days Qty: 60 6RF Interventions: ED Discharge Assessment Last Done: 10/09/21 11:22 Discharge Date/Time: 10/09/21 11:23
== END 2021-10-09 11:23 | disposition home or self-care (01) ==
PROVIDERS: Emergency Provider Emergency Medicine; PCP Internal Medicine
DX: J01.00 Acute maxillary sinusitis, unspecified (principal); Z20.822 Contact with and (suspected) exposure to COVID-19
CPT/HCPCS: 87635; 99283

== ENCOUNTER 2021-10-11 08:58 | Day surgery (SDC) | payer OTHER, SELFPAY ==
[2021-10-05 11:09] VITALS: BMI 44.2
[2021-10-11 09:09] VITALS: BP 122/87; PULSE 103; RESP 18; TEMP 36.1; O2SAT 97
--- NOTE | 2021-10-11 09:09 | MHC.SHP ---
Pre-Procedural Eval Section A Date of Service: 10/11/21 Section B Chief Complaint: Esophageal obstruction,dysphagia,reflux disease Details of Present Illness: cervical web Relevant Family History (Specify if Yes): No Relevant Social History: None Present Medications: see Short Stay Collaborative assessment Medical History: Significant History (B12 deficiency Bacteremia Depression Dysphagia FABIAN (generalized anxiety disorder) Hip pain History of Templeton's palsy Hypovitaminosis D Insomnia Left foot pain Low back pain Mild recurrent major depression Moderate asthma Morbid obesity with BMI of 40.0-44.9, adult Urge urinary incontinence) History of Previous Operations: Relevant previous surgery/procedure and date(s) (H/O gastric bypass History of section History of colonoscopy History of endoscopy History of removal of cyst History of splenectomy History of tubal ligation) Allergies: Allergies Allergy/AdvReac Type Severity Reaction Status Date / Time cefuroxime Allergy Intermediate rash Verified 10/07/21 14:34 ibuprofen Allergy Intermediate stomach Verified 10/07/21 14:34 upset Iodinated Contrast Media Allergy Intermediate THROAT Verified 10/07/21 14:34 [IV CONTRAST] ITCHING trazodone Allergy Intermediate headache Verified 10/07/21 14:34 Review of Systems Sugical H&P ROS: Negative: Constitution, Cardiovascular, Respiratory, Neurological, Psychiatric, Hem-Onc, Allergic/Immunologic, Gastrointestinal, Genitourinary, Musculoskeletal, Integumentary, Endocrine and Eyes/Ears/Nose/Throat Exam Surgical H&P Exam: Normal: HEENT, Normal: Heart, Normal: Lungs, Normal: Extremities, Normal: Abdomen, Normal: Skin and Normal: Neurological Plan Diagnosis/Plan: Unchanged I have reviewed the history and physical and performed a pertinent physical examination on my patient. No changes have occurred unless specified.
[2021-10-11] MEDS: Lactated Ringers 1,000 ML 50 ML IVCONT (09:31)
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
--- NOTE | 2021-10-11 10:52 | W.PM.OPN ---
Operative Note Operative Note Date of Service: 10/11/21 Narrative: Procedure Description: EGD Indication: dysphagia, cervical web on imaging Anesthesia: MAC FLEXIBLE TRANSORAL UPPER GASTROINTESTINAL ENDOSCOPY UPPER ENDOSCOPY Consent: Indications for the procedure and potential complications of bleeding, perforation, reaction to medications and missed diagnosis were discussed with the patient and informed consent was obtained. Instrument: Olympus GIF H 190 J mid size upper endoscope Monitoring: Vital signs and clinical assessment, continuous EKG monitoring, Pulse oximetry, Carbon Dioxide monitoring and blood pressure monitoring were done throughout the procedure. Patient has history of gastric surgeries Procedure: The patient was placed in the left lateral decubitis position and pre-procedure medications were administered and a bite block was placed. The endoscope was inserted into the mouth and advanced under direct vision to the small bowel. A careful inspection was made as the upper endoscope was withdrawn. Findings and interventions are described below. Findings: Larynx:normal Esophagus: GE junction at 35 cm, diaphragm hiatus at 38 cm, consistent with 3 cm hiatal hernia. The proximal esophagus was dilated to 14.5 mm with resistance felt, some heme noted. There did not appear to be a gastric pouch, but rather a esophago jejunal anastomosis. Views were obscured by retained food. biopsies were taken of what looked like small bowel. Intervention: Biopsies as noted above, balloon dilation Impression/Findings: retained food in small bowel anastomosis esophageal stricture PLAN: can up dilate esophagus in few months if needed eat small meal, increase fluids with fluid check opiate use, might benefit from motegrity or reglan
[2021-10-11 11:17] VITALS: BP 130/83; PULSE 112; RESP 22; TEMP 36.1; O2SAT 98
[2021-10-11 11:32] VITALS: BP 125/85; PULSE 104; RESP 20; O2SAT 97
[2021-10-11 11:43] VITALS: BP 119/77; PULSE 102; RESP 18; O2SAT 98
[2021-10-11 11:57] VITALS: TEMP 36.1
== END 2021-10-11 12:27 | disposition home or self-care (01) ==
LOC: HO.SSS 08:59
PROVIDERS: PCP Internal Medicine; Visit Provider Internal Medicine Gastroenterology
PROC: 0DJ08ZZ Inspection of Upper Intestinal Tract, Via Natural or Artificial Opening Endoscopic (ICD-10-PCS; CPT 43235; principal; 2021-10-11 10:00)
DX: K22.2 Esophageal obstruction (principal); K21.9 Gastro-esophageal reflux disease without esophagitis; R78.81 Bacteremia; E55.9 Vitamin D deficiency, unspecified; E53.8 Deficiency of other specified B group vitamins; G47.00 Insomnia, unspecified; J45.909 Unspecified asthma, uncomplicated; F33.0 Major depressive disorder, recurrent, mild; F41.1 Generalized anxiety disorder; N39.41 Urge incontinence; E66.01 Morbid (severe) obesity due to excess calories; Z68.41 Body mass index [BMI] 40.0-44.9, adult; Z98.84 Bariatric surgery status; Z98.0 Intestinal bypass and anastomosis status; Z88.8 Allergy status to other drugs, medicaments and biological substances; Z91.041 Radiographic dye allergy status; Z90.81 Acquired absence of spleen; K44.9 Diaphragmatic hernia without obstruction or gangrene
CPT/HCPCS: 43249; 43239; 88305; C1726; J2250

== ENCOUNTER 2021-11-18 13:46 | Outpatient (REF) | payer OTHER, SELFPAY ==
[2021-11-18 16:47] LABS: Appearance Urine Clear; Color Urine Yellow; Glucose Urine UA Negative (Negative); Leukocyte Esterase Urine Small (1+) (Negative); Nitrite Urine Negative (Negative); PH 5.5 (5.0-9.0); Specific Gravity - Urine 1.025 (1.005-1.025); UMIC TRIGGER UACC YES; Urine Blood Negative (Negative); Urine Ketones Trace mg/dL (Negative); Urine Protein Negative (Neg-Trace)
[2021-11-18 17:18] LABS: Bacteria Urine None Seen (None Seen); Calcium Oxalate Crystals Urine Present; Hyaline Casts Urine 0-2 /LPF (0-2); RBC Urine 0-2 /HPF (0-2); Squamous Epithelial Cell Urine 0-2 /HPF (0-2); UACC Culture Trigger YES
== END 2021-11-18 13:47 | disposition home or self-care (01) ==
LOC: HO.LAB 13:46
PROVIDERS: PCP Internal Medicine; Visit Provider Nurse Practitioner
DX: K30 Functional dyspepsia (principal)
CPT/HCPCS: 81001; 87086; 99212

== ENCOUNTER → 2021-12-30 11:37 | Outpatient (BNVA) | payer OTHER, SELFPAY | PROVIDERS: PCP Internal Medicine; Visit Provider Nurse Practitioner | DX: K21.9 Gastro-esophageal reflux disease without esophagitis (principal); K22.2 Esophageal obstruction; K30 Functional dyspepsia; B37.2 Candidiasis of skin and nail | CPT/HCPCS: 99212 ==

== ENCOUNTER 2022-07-14 12:29 | Outpatient (REF) | payer OTHER, SELFPAY ==
[2022-07-14 18:22] LABS: CT PCR NOT DETECTED (Not Detect.); NG PCR NOT DETECTED (Not Detect.)
[2022-07-15 09:21] LABS: BV Int Neg Control Negative (Negative); BV Int Pos Control Positive (Positive)
[2022-07-20 07:58] LABS: HPV 16 RNA NOT DETECTED (NOT DETECTED); HPV mRNA E6/E7 rflx Detected (Not Detected)
== END 2022-07-14 12:30 | disposition home or self-care (01) ==
LOC: HO.LNP 12:29
PROVIDERS: PCP Internal Medicine; Visit Provider Obstetrics & Gynecology
DX: N89.8 Other specified noninflammatory disorders of vagina (principal); R30.0 Dysuria; N93.0 Postcoital and contact bleeding; N95.0 Postmenopausal bleeding
CPT/HCPCS: 0353U; 81003; 87086; 87480; 87510; 87624; 87625; 87660; 88142; 99202

== ENCOUNTER 2022-09-07 14:02 | Outpatient (REF) | payer OTHER, SELFPAY ==
--- NOTE | ~2022-09-07 | US_ITS ---
EXAMINATION: US PELVIS COMPLETE CLINICAL INFORMATION: Postmenopausal bleeding COMPARISON: Pelvic ultrasound 06/05/2019 TECHNIQUE: Transabdominal and transvaginal imaging was performed. FINDINGS: The uterus is of normal size and echogenicity measuring 7.9 x 2.4 x 3.9 cm. Uterus is is retroflexed in position. A regular homogeneous endometrium is identified measuring 0.3 cm. 2.5 x 2.4 x 2.7 cm transmural fundal myoma decreased from prior previously 3.1 x 2.8 x 2.6 cm. Ovaries not identified sonographically. No adnexal mass. There is no pelvic free fluid. US/US pelvic and transvaginal IMPRESSION: 1. The endometrium measures 3 mm in thickness. 2. A 2.7 cm transmural fundal myoma decreased from prior. 3. Ovaries not identified sonographically. No adnexal mass.
== END 2022-09-07 14:03 | disposition home or self-care (01) ==
LOC: HO.US 14:02
PROVIDERS: PCP Internal Medicine; Visit Provider Obstetrics & Gynecology
DX: N95.0 Postmenopausal bleeding (principal); N93.0 Postcoital and contact bleeding
CPT/HCPCS: 76830; 76856

== ENCOUNTER → 2022-10-03 10:15 | Outpatient (BNV) | payer OTHER, SELFPAY | PROVIDERS: PCP Internal Medicine; Visit Provider Radiology Diagnostic Radiology | DX: Z12.31 Encounter for screening mammogram for malignant neoplasm of breast (principal) | CPT/HCPCS: 77063; 77067 ==

== ENCOUNTER 2022-10-03 10:18 | Outpatient (REF) | payer OTHER, SELFPAY ==
--- NOTE | ~2022-10-03 | MM_ITS ---
EXAMINATION: MM SCREENING DIGITAL BREAST TOMOSYNTHESIS, BILATERAL CLINICAL INFORMATION: Screening. Asymptomatic. COMPARISON: Mammography: This study is compared with prior exams dating back to 2016. TECHNIQUE: Digital breast tomosynthesis is performed in both the craniocaudal and mediolateral oblique views along with computer-aided detection (CAD). Synthesized 2D images are generated from the tomosynthesis. FINDINGS: The breasts are almost entirely fatty (ACR BI-RADS breast composition Category a). There are no significant masses, abnormal calcifications, or other abnormalities. There are bilateral benign calcifications present. MM/MM tomosynthesis screening BI IMPRESSION: No mammographic evidence of malignancy. ASSESSMENT: BI-RADS BI-RADS 2 - Benign Findings RECOMMENDATION: Routine annual mammography screening. 1 year F/U This examination should not preclude the clinical evaluation of a suspicious palpable abnormality. This patient's information was entered into a reminder system with a target due date for their next mammogram.
== END 2022-10-03 10:19 | disposition home or self-care (01) ==
LOC: HO.MAMMO 10:18
PROVIDERS: PCP Internal Medicine; Visit Provider Internal Medicine
DX: Z12.31 Encounter for screening mammogram for malignant neoplasm of breast (principal)
CPT/HCPCS: 77063; 77067

== ENCOUNTER 2022-10-12 13:23 | Outpatient (AMB) | payer OTHER, SELFPAY ==
--- NOTE | 2022-10-12 14:44 | AM.OFFWIN_ITS ---
Intake Vital Signs 10/12/22 14:51 Height 5 ft 3 in Weight 209 lb BMI 37.0 BP 104/70 Blood Pressure Location Rt brachial Position Sitting Pulse 134 H Pulse Source Pulse Oximeter Temp 97.6 F Temp Source Temporal Artery Scan Pulse Oximetry (%) 96 Oxygen Delivery Method Room Air Intake Visit Reasons: Est/body aches/cough/[phone] Intake Note: Pt is here c/o testing positive for COVID this past weekend twice. Pt states she is SOB, has body aches and a bad cough. Patient Tobacco Use Status: Never used Tobacco Allergies cefuroxime Allergy (Intermediate, Verified 10/12/22 15:28) rash ibuprofen Allergy (Intermediate, Verified 10/12/22 15:28) stomach upset Iodinated Contrast Media [IV CONTRAST] Allergy (Intermediate, Verified 10/12/22 15:28) THROAT ITCHING trazodone Allergy (Intermediate, Verified 10/12/22 15:28) headache Do you need a note to return to daycare/school/sports/work: No HPI Est/body aches/cough/[phone] HPI Details Patient presents for a sick visit. Reporting symptoms of sinus congestion, sore throat and difficulty swallowing. Low-grade fever. No family member is sick. No recent travel. Patient reports symptoms of malaise and fatigue. [facility] Medical History B12 deficiency Bacteremia Depression Dysphagia FABIAN (generalized anxiety disorder) Hip pain History of Templeton's palsy Hypovitaminosis D Insomnia Left foot pain Low back pain Mild recurrent major depression Moderate asthma Morbid obesity with BMI of 40.0-44.9, adult Urge urinary incontinence Surgical History H/O gastric bypass History of section History of colonoscopy History of endoscopy History of removal of cyst History of splenectomy History of tubal ligation Family History Father Hypertension CVD (cardiovascular disease) Diabetes Mother Heart problem Acute kidney failure Brother Aneurysm Family/Other FH: mental illness Substance use disorder Maternal Grandmother Colon cancer Social History Housing: House Alcohol intake: never Patient Tobacco Use Status: Never used Tobacco e-Cigarette/Vaping Use: Never Used Second Hand Smoke Exposure: No service: No Current occupational status: unemployed Cognitive needs: No Hearing needs: No Vision needs: Yes Female Reproductive History Menstrual Age of Menarche: 8 Physical Exam Vital Signs: Last Vital Signs Temp 97.6 F 10/12/22 14:51 Pulse 134 H 10/12/22 14:51 BP 104/70 10/12/22 14:51 Pulse Ox 96 10/12/22 14:51 Oxygen Delivery Method Room Air 10/12/22 14:51 BMI result Body Mass Index 37.0 Const General: cooperative and healthy appearing Nutritional Appearance: well nourished Orientation/consciousness: patient oriented x3 Limitations: no limitations HEENT Head: Yes normal to inspection Eyes General: appearance normal, both eyes and all related structures Neck Neck: Yes normal visual inspection Chest Chest palpation & inspection: normal palpation of entire chest wall Resp Effort & Inspection: normal respiratory effort Neuro General: patient oriented x3 Assessment & Plan Assessment & Plan (1) Viral respiratory illness: Code(s): J98.8 - Other specified respiratory disorders; B97.89 - Other viral agents as the cause of diseases classified elsewhere Plan: Antibiotics ordered. Increase fluid intake. Tylenol for aches and pains. If symptoms worsen, follow-up here for a recheck. Orders: Orders SARS-CoV2/FLU/RSV Today R43.9 - Unspecified disturbances of smell and taste Coding Level of Care Code Est Pt Level 3 (98742) Diagnoses Viral respiratory illness J98.8; B97.89
[2022-10-12 14:51] VITALS: BP 104/70; PULSE 134; TEMP 36.4; O2SAT 96; BMI 37.0
== END 2022-10-12 15:29 | disposition home or self-care (01) ==
PROVIDERS: PCP Internal Medicine; Visit Provider Internal Medicine
DX: J98.8 Other specified respiratory disorders (principal); B97.89 Other viral agents as the cause of diseases classified elsewhere
CPT/HCPCS: 99213

== ENCOUNTER 2022-10-12 17:49 | Outpatient (REF) | payer OTHER, SELFPAY ==
[2022-10-12 19:53] LABS: Influenza A PCR NEGATIVE (Negative); Influenza B PCR NEGATIVE (Negative); Resp Syncy Virus RNA Qual PCR NEGATIVE (Negative); SARS COV2 PCR INHOUSE POSITIVE (Negative)
== END 2022-10-12 17:50 | disposition home or self-care (01) ==
LOC: HO.LNP 17:49
PROVIDERS: Visit Provider Internal Medicine
DX: R43.9 Unspecified disturbances of smell and taste (principal); Z20.822 Contact with and (suspected) exposure to COVID-19
CPT/HCPCS: 0241U

== ENCOUNTER 2022-10-24 11:54 | Outpatient (AMB) | payer OTHER, SELFPAY ==
--- NOTE | 2022-10-24 11:56 | A.OFFVIS_ITS ---
Intake Vital Signs 10/24/22 12:01 Height 5 ft 3 in Weight 207 lb 3.752 oz BMI 36.7 BP 122/76 Intake Visit Reasons: COLPO/US follow up Clinical Coordinator Required: No Information Interpreted: non-clinical & clinical Voice Over Artist: Voice Over Artist Present (Karine MARROQUIN) Accompanied by: Self / Same As Patient Allergies cefuroxime Allergy (Intermediate, Verified 10/24/22 12:02) rash ibuprofen Allergy (Intermediate, Verified 10/24/22 12:02) stomach upset Iodinated Contrast Media [IV CONTRAST] Allergy (Intermediate, Verified 10/24/22 12:02) THROAT ITCHING trazodone Allergy (Intermediate, Verified 10/24/22 12:02) headache Post menopausal: Yes HPI HPI Comments History of Present Illness Details Presenting for ultrasound follow-up regarding postcoital bleeding . GC/CT, BV panel or negative. Pap smear showed ascus/HPV positive. Pelvic ultrasound showed the following: The uterus is of normal size and echogenicity measuring 7.9 x 2.4 x 3.9 cm. Uterus is is retroflexed in position. A regular homogeneous endometrium is identified measuring 0.3 cm. 2.5 x 2.4 x 2.7 cm transmural fundal myoma decreased from prior previously 3.1 x 2.8 x 2.6 cm. Ovaries not identified sonographically. No adnexal mass. There is no pelvic free fluid. [facility] Medical History Low back pain Left foot pain Urge urinary incontinence Moderate asthma Hypovitaminosis D FABIAN (generalized anxiety disorder) Mild recurrent major depression Morbid obesity with BMI of 40.0-44.9, adult Bacteremia B12 deficiency Dysphagia Hip pain History of Templeton's palsy Insomnia Depression Surgical History History of endoscopy History of colonoscopy History of splenectomy History of removal of cyst H/O gastric bypass History of section History of tubal ligation Family History Father Hypertension CVD (cardiovascular disease) Diabetes Mother Heart problem Acute kidney failure Brother Aneurysm Family/Other FH: mental illness Substance use disorder Maternal Grandmother Colon cancer Social History Housing: House Alcohol intake: never Patient Tobacco Use Status: Never used Tobacco e-Cigarette/Vaping Use: Never Used Second Hand Smoke Exposure: No service: No Current occupational status: unemployed Cognitive needs: No Hearing needs: No Vision needs: Yes Female Reproductive History Menstrual Age of Menarche: 8 Review of Systems Const All systems reviewed & are unremarkable except as noted in HPI and below Reports as per HPI and Reports no additional complaints GI Reports no additional complaints Reports no additional complaints Office Procedures Colposcopy Before the procedure was started discussed with the patient the procedure, alternatives & all the risks associated with the procedure (bleeding, infection, injury to vagina, bladder, vessels, possible need for transfusion with all its risks) then patient signed the consent Pap smear = ascus/HPV pause Speculum inserted, acetic acid used Colposcopy done Transformation zone seen, acetowhite lesions identified at 6 o?clock, cervical biopsies taken from 6 o?clock, ECC done afterwards. Vaginoscopy of the upper vagina showed no evidence of any aceto-white lesions Monsel solution used for hemostasis. The patient tolerated well . At the end the patient was instructed to call if temp>100.4, abdominal pain, n/v, bleeding; The patient was given the following instructions: nothing per vagina, no intercourse or bath tub use. All questions answered the patient verbalized understanding. Instructed the patient to make an appointment in 2 weeks for follow-up This note was generated with a voice recognition program. Some errors may have been overlooked during the review of this note. Sometimes these errors may affect the content or meaning of a given sentence. [id number] of cervix including upper vagina with biopsy and ECC Procedure code (CPT) selection complete Assessment & Plan Assessment & Plan (1) Postcoital bleeding: Code(s): N93.0 - Postcoital and contact bleeding Plan: Discussed with the patient the results of GC/chlamydia, abnormal Pap smear. Will proceed with colposcopy/biopsy/ECC . Discussed with the patient the results of the pelvic ultrasound showing an endometrial stripe thickness of 3 mm. Explained to the patient with an endometrial stripe of 4 mm &/or less, there is a high negative predictive value in detecting endometrial pathology including endometrial hyperplasia, polyps or malignancy. Therefore, there is no indication for endometrial sampling. Discussed with the patient the sensitivity, specificity, and positive and the negative predictive value of using ultrasound in detecting endometrial pathology. The patient was instructed to call if bleeding recurs, will proceed with endometrial sampling out endometrial pathology. All questions were answered and the patient verbalized understanding and agreed with the plan. (2) Uterine myoma: Code(s): D25.9 - Leiomyoma of uterus, unspecified Plan: Discussed with the patient the findings on pelvic ultrasound & the risk of myosarcoma; discussed with the patient the options of treatment including expectant management versus hysterectomy; the pros and cons, risks benefits of each approach were discussed with the patient including the fact that in cases of myosarcoma, surgical treatment can lead to early diagnosis and positively affects the prognosis; after further discussion, the patient decided to proceed with expectant management. Will repeat pelvic ultrasound periodically. Instructions given to patient to call in case any of the following occurs: pressure symptoms, abnormal uterine bleeding, pelvic pain; and to schedule a future office follow-up appointment for reassessment and to order a repeat ultrasound . All questions answered, the patient verbalized understanding and agreed with the plan . (3) ASCUS with positive high risk HPV cervical: Code(s): R87.610 - Atypical squamous cells of undetermined significance on cytologic smear of cervix (ASC-US); R87.810 - Cervical high risk human papillomavirus (HPV) DNA test positive Plan: Colposcopy biopsy/ECC done, see procedure note Orders: Orders AMB Colposcopy Today R87.610 - Atypical squamous cells of undetermined significance on cytologic smear of cervix (ASC-US), R87.810 - Cervical high risk human papillomavirus (HPV) DNA test positive Coding Level of Care Code Est Pt Level 3 (93313) Procedure Only Diagnoses Postcoital bleeding N93.0 Uterine myoma D25.9 ASCUS with positive high risk HPV cervical R87.610; R87.810 CPT Codes Colposcopy - CPT: 71630-Vsjufjdot of cervix including upper vagina with biopsy and ECC ([id number])
[2022-10-24 12:01] VITALS: BP 122/76; BMI 36.7
== END 2022-10-24 12:15 | disposition home or self-care (01) ==
PROVIDERS: PCP Internal Medicine; Visit Provider Obstetrics & Gynecology
DX: N93.0 Postcoital and contact bleeding (principal); D25.9 Leiomyoma of uterus, unspecified; R87.610 Atypical squamous cells of undetermined significance on cytologic smear of cervix (ASC-US); R87.810 Cervical high risk human papillomavirus (HPV) DNA test positive
CPT/HCPCS: 57454; 99213

== ENCOUNTER 2022-10-24 11:54 | Outpatient (REF) | payer OTHER, SELFPAY | END 2022-10-24 11:55 | disposition home or self-care (01) | LOC: HO.LNP 11:54 | PROVIDERS: PCP Internal Medicine; Visit Provider Obstetrics & Gynecology | DX: R87.610 Atypical squamous cells of undetermined significance on cytologic smear of cervix (ASC-US) (principal); R87.810 Cervical high risk human papillomavirus (HPV) DNA test positive; N39.0 Urinary tract infection, site not specified; D25.9 Leiomyoma of uterus, unspecified | CPT/HCPCS: 57454; 88305; 88342; 88360; 99212 ==

== ENCOUNTER 2022-10-26 11:18 | Outpatient (AMB) | payer OTHER, SELFPAY ==
[2022-10-26 11:27] VITALS: BP 130/70; PULSE 84; O2SAT 99; BMI 38.1
--- NOTE | 2022-10-26 11:27 | A.OFFPC_ITS ---
Vital Signs 10/26/22 11:27 Height 5 ft 3 in Weight 215 lb BMI 38.1 BP 130/70 Blood Pressure Location Lt brachial Position Sitting Pulse 84 Pulse Source Pulse Oximeter Temp Source Skin Pulse Oximetry (%) 99 Oxygen Delivery Method Room Air Intake Visit Reasons: Annual Exam Allergies cefuroxime Allergy (Intermediate, Verified 10/26/22 11:37) rash ibuprofen Allergy (Intermediate, Verified 10/26/22 11:37) stomach upset Iodinated Contrast Media [IV CONTRAST] Allergy (Intermediate, Verified 10/26/22 11:37) THROAT ITCHING trazodone Allergy (Intermediate, Verified 10/26/22 11:37) headache Medication List - Last Reconciled 10/26/22 by UJS Wolf acetaminophen (Tylenol Extra Strength) 1,000 mg (2 x 500 mg) PO QID PRN albuterol sulfate 90 mcg/actuation (ProAir RespiClick) 2 inhalations inhalation Q6H PRN 30 days cholecalciferol (vitamin D3) 25 mcg PO DAILY 90 days citalopram (Celexa) 20 mg PO DAILY 90 days cyclobenzaprine 10 mg PO TID PRN 30 days fluticasone propion-salmeterol 113-14 mcg/actuation 1 inh inhalation BID 30 days fluticasone propionate 50 mcg/actuation 1 spray intranasal DAILY 30 days hydroxyzine HCl 25 mg PO Q8H mecobalamin (vitamin B12) 1,000 mcg sublingual BEDTIME 90 days metoclopramide HCl (Reglan) 5 mg PO QIDACHS nystatin 1 appl topical BID 14 days oxybutynin chloride 5 mg PO BID pantoprazole (Protonix) 40 mg PO BID 30 days sucralfate (Carafate) 20 mL PO DAILY Tobacco use date assessed: 10/26/22 Dental Screening Dental Screen Date: 10/26/22 Did you have a dental visit in the last 12 months?: Yes Did you have a dental problem in the last 6 months where you did not have access to dental care?: No Was dental information given to patient?: Patient has dentist HPI Annual Exam HPI Details Patient is a 57-year-old female who presents today for physical exam. Patient of Dr. Benavidez. Medical history significant for vitamin B12 deficiency, anxiety, moderate asthma, GERD, depression, esophageal stricture-followed by [facility]-patient reports intermittent dysphagia among others. Patient reports normal colonoscopy less than 10 years ago which was done by Dr. Sin at [facility] in [facility], will request records. Mammogram normal 09/2022. Pap smear 07/2022 with ascus and HPV positive, pending colposcopy results-followed by [facility]. Eye and dentist exams up-to-date. Patient reports history of pneumonia vaccine. No shortness of breath or chest pain. [facility] Medical History Low back pain Left foot pain Urge urinary incontinence Moderate asthma Hypovitaminosis D FABIAN (generalized anxiety disorder) Mild recurrent major depression Morbid obesity with BMI of 40.0-44.9, adult Bacteremia B12 deficiency Dysphagia Hip pain History of Templeton's palsy Insomnia Depression Surgical History History of endoscopy History of colonoscopy History of splenectomy History of removal of cyst H/O gastric bypass History of section History of tubal ligation Family History Father Hypertension CVD (cardiovascular disease) Diabetes Mother Heart problem Acute kidney failure Brother Aneurysm Family/Other FH: mental illness Substance use disorder Maternal Grandmother Colon cancer Social History Housing: House Alcohol intake: never Patient Tobacco Use Status: Never used Tobacco e-Cigarette/Vaping Use: Never Used Second Hand Smoke Exposure: No service: No Current occupational status: unemployed Cognitive needs: No Hearing needs: No Vision needs: Yes Female Reproductive History Menstrual Age of Menarche: 8 Questionnaire PHQ-9 Over the last 2 weeks, how often have you been bothered by any of the following problems? 1. Little interest or pleasure in doing things: not at all 2. Feeling down, depressed, or hopeless: several days 3. Trouble falling or staying asleep, or sleeping too much: not at all 4. Feeling tired or having little energy: not at all 5. Poor appetite or overeating: not at all 6. Feeling bad about yourself - or that you are a failure or have let yourself or your family down: not at all 7. Trouble concentrating on things, such as reading the newspaper or watching television: not at all 8. Moving or speaking so slowly that other people could have noticed. Or the opposite - being so fidgety or restless that you have been moving around a lot more than usual: not at all 9. Thoughts that you would be better off or of hurting yourself in some way: not at all Total score: 1 Depression Screening Interpretation: Negative 22929 - PHQ-9 Billing: Yes Source: Developed by Drs. Herber Cruz, Kenrick Lozano and colleagues, with an educational rowena from [email or web address]. Thrive Questionnaire Date Thrive assessed: 03/03/22 AUDIT C Alcohol Use Questionnaire (AUDIT-C) 1. How often do you have a drink containing alcohol?: Never Total Score: 0 Score Reviewed/Action Taken: No FABIAN-7 AMB Questionnaire FABIAN-7 Date FABIAN - 7 assessed: 10/26/22 Feeling nervous, anxious, or on edge: 1 = Several days Not being able to stop or control worryin = Not at all Worrying too much about different things: 1 = Several days Trouble relaxin = Not at all Being so restless that it is hard to sit still: 0 = Not at all Becoming easily annoyed or irritable: 0 = Not at all Feeling afraid as if something awful might happen: 0 = Not at all Total FABIAN-7 score (0-4 normal; 5-9 mild; 10-14 moderate; 15-21 severe): 2 Source: Developed by Drs. Herber Cruz, Jaclyn Boyd, Kenrick Wolfe and colleagues, with an educational rowena from [email or web address]. FABIAN-7 Assessment Billing FABIAN-7 Assessment Tool: FABIAN-7 Assessment 07069 Review of Systems Const Denies body aches, Denies chills, Denies fever(s) and Denies headache(s) Eyes Denies change in vision ENT Denies dizziness, Denies otalgia, Denies headache(s), Denies nasal discharge, Denies sinus pain and Denies sore throat Card Denies chest pain, Denies edema, Denies lightheadedness and Denies dyspnea Resp Reports cough (Intermittent after being sick with COVID last month), Denies dyspnea and Denies wheezing GI Denies abdominal pain Denies dysuria Musc Denies myalgias Skin/Breast Denies rash Neuro Denies dizziness and Denies headache(s) Aller/Immun Denies wheezing Physical exam (Primary Care) Vital Signs: Last Vital Signs Pulse 84 10/26/22 11:27 BP 130/70 10/26/22 11:27 Pulse Ox 99 10/26/22 11:27 Oxygen Delivery Method Room Air 10/26/22 11:27 BMI result Body Mass Index 38.1 Tobacco/Smoking Status: Tobacco use Status Tobacco use date assessed 10/26/22 10/26/22 11:31 Patient Tobacco Use Status Never used Tobacco 10/26/22 11:31 e-Cigarette/Vaping Use Never Used 10/26/22 11:31 PHQ-9: PHQ-9 Score PHQ-9: Total score 1 10/26/22 11:40 Depression Screening Interpretation: Negative Thrive Assessment: Date of Thrive Assessment Date Thrive assessed 03/03/22 10/26/22 11:31 Const General: cooperative and no acute distress Orientation/consciousness: patient oriented x3 HENMT Head: Yes normocephalic and Yes atraumatic Ears: TM's normal bilaterally Face and sinus: Yes sinuses nontender Mouth: oropharynx normal and moist mucous membranes Throat: Yes posterior oropharynx normal Eyes General: appearance normal, both eyes and all related structures Pupils: Equal, round and reactive pupils present EOM: EOMs intact bilaterally Neck Neck: Yes normal visual inspection, Yes full ROM and Yes no lymphadenopathy Thyroid: Thyroid normal Resp Effort & Inspection: normal respiratory effort and able to speak in complete sentences Auscultation: clear to auscultation bilaterally, no crackles, no rales, no rhonchi and no wheezes Cardio Rate: regular rate Rhythm: regular rhythm Heart sounds: S1 normal heart sound present, S2 normal heart sound present and no murmurs GI Palpation (GI): Soft to palpation, not firm, nontender, no guarding, not rigid and no hepatosplenomegaly Auscultation: normal bowel sounds General: No CVA tenderness Back/Spine/Pelvis Back: No CVA tenderness Skin General skin exam: no rashes or lesions noted Neuro General: patient oriented x3 Cranial nerves: Yes Equal, round and reactive pupils present Gait exam (Neuro): Normal gait present Extrem General: Yes full ROM and No edema Assessment and Plan Assessment & Plan (1) Physical exam: Code(s): Z00.00 - Encounter for general adult medical examination without abnormal findings Plan: Repeat in 1 year Blood work ordered (2) Esophageal stricture: Comment: ESOPHAGEAL WEB SEEN ON BARIUM SWALLOW 07/2020 IN THE CERVICAL REGION Code(s): K22.2 - Esophageal obstruction Plan: Continue to follow-up with [facility] [place] (3) FABIAN (generalized anxiety disorder): Code(s): F41.1 - Generalized anxiety disorder Plan: Stable Continue Celexa (4) Mild recurrent major depression: Code(s): F33.0 - Major depressive disorder, recurrent, mild Plan: Same as above (5) Obesity (BMI 30-39.9): Code(s): E66.9 - Obesity, unspecified Plan: Healthy food choices and exercise as tolerated (6) Moderate asthma: Code(s): J45.909 - Unspecified asthma, uncomplicated Qualifiers: Asthma persistence: persistent Asthma complication type: uncomplicated Qualified Code(s): J45.40 - Moderate persistent asthma, uncomplicated Plan: Patient reports intermittent dry cough after being sick with COVID last month Patient is to continue current inhalers as prescribed Notify office if improvement in couple weeks Lungs are clear to auscultation Patient requested refill on albuterol inhaler Orders: Orders Vitamin D 25-OH Total Today Z00.00 - Encounter for general adult medical examination without abnormal findings Comprehensive [place]. Panel Fast Today Z00.00 - Encounter for general adult medical examination without abnormal findings Lipase Today Z00.00 - Encounter for general adult medical examination without abnormal findings Vitamin B12 and Folate Today Z00.00 - Encounter for general adult medical examination without abnormal findings TSH reflex Free T4 Today Z00.00 - Encounter for general adult medical examination without abnormal findings Lipid Panel Today Z00.00 - Encounter for general adult medical examination without abnormal findings Complete Blood Count Auto Diff Today Z00.00 - Encounter for general adult medical examination without abnormal findings Medications: Refilled hydroxyzine HCl 25 mg PO Q8H 252 tabs 3RF albuterol sulfate 90 mcg/actuation (ProAir RespiClick) 2 inhalations inhalation Q6H 30 days PRN 1 ea 6RF shortness of breath or wheezing Coding Level of Care Code Est Pt Prev Care 40-64y(16199) Diagnoses Physical exam Z00.00 Esophageal stricture K22.2 FABIAN (generalized anxiety disorder) F41.1 Mild recurrent major depression F33.0 Obesity (BMI 30-39.9) E66.9 Moderate persistent asthma without complication J45.40 Asthma persistence: persistent Asthma complication type: uncomplicated Additional Codes FABIAN-7 Assessment Billing - FABIAN-7 Assessment Tool: FABIAN-7 Assessment [id number] ([id number])
== END 2022-10-26 11:56 | disposition home or self-care (01) ==
PROVIDERS: PCP Internal Medicine; Visit Provider Nurse Practitioner Family
DX: Z00.00 Encounter for general adult medical examination without abnormal findings (principal); K22.2 Esophageal obstruction; F33.0 Major depressive disorder, recurrent, mild; J45.40 Moderate persistent asthma, uncomplicated; F41.1 Generalized anxiety disorder; E66.9 Obesity, unspecified
CPT/HCPCS: 99396

== ENCOUNTER 2022-12-28 11:37 | Outpatient (AMB) | payer OTHER, SELFPAY ==
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
[2022-12-28 11:43] VITALS: BP 114/69; PULSE 98; BMI 37.7
== END 2022-12-28 12:08 | disposition home or self-care (01) ==
PROVIDERS: PCP Internal Medicine; Visit Provider Nurse Practitioner
DX: K22.2 Esophageal obstruction (principal); R13.19 Other dysphagia; K30 Functional dyspepsia; K90.89 Other intestinal malabsorption; E66.9 Obesity, unspecified; J45.40 Moderate persistent asthma, uncomplicated
CPT/HCPCS: 99214

== ENCOUNTER → 2022-12-28 11:37 | Outpatient (BNVA) | payer OTHER, SELFPAY | PROVIDERS: PCP Internal Medicine; Visit Provider Nurse Practitioner | DX: R13.10 Dysphagia, unspecified (principal); K22.2 Esophageal obstruction; K30 Functional dyspepsia; K90.89 Other intestinal malabsorption; E66.9 Obesity, unspecified; J45.40 Moderate persistent asthma, uncomplicated; Z68.37 Body mass index [BMI] 37.0-37.9, adult | CPT/HCPCS: 99212 ==

== ENCOUNTER 2023-03-15 12:24 | Outpatient (AMB) | payer OTHER, SELFPAY ==
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
[2023-03-15 12:28] VITALS: BP 118/70; BMI 37.5
== END 2023-03-15 13:55 | disposition home or self-care (01) ==
LOC: HO.HWS 12:25
PROVIDERS: PCP Internal Medicine; Visit Provider Obstetrics & Gynecology
DX: R87.610 Atypical squamous cells of undetermined significance on cytologic smear of cervix (ASC-US) (principal); R87.810 Cervical high risk human papillomavirus (HPV) DNA test positive
CPT/HCPCS: 99213

== ENCOUNTER → 2023-03-15 12:24 | Outpatient (BNVA) | payer OTHER, SELFPAY | PROVIDERS: PCP Internal Medicine; Visit Provider Obstetrics & Gynecology | DX: R87.610 Atypical squamous cells of undetermined significance on cytologic smear of cervix (ASC-US) (principal); R87.810 Cervical high risk human papillomavirus (HPV) DNA test positive; Z98.890 Other specified postprocedural states | CPT/HCPCS: 99212 ==

== ENCOUNTER 2023-04-05 11:05 | Outpatient (AMB) | payer OTHER, SELFPAY ==
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
[2023-04-05 11:24] VITALS: BP 109/77; PULSE 93; BMI 39.4
== END 2023-04-05 12:04 | disposition home or self-care (01) ==
PROVIDERS: PCP Internal Medicine; Visit Provider Nurse Practitioner
DX: K30 Functional dyspepsia (principal); K90.89 Other intestinal malabsorption; K21.9 Gastro-esophageal reflux disease without esophagitis; K22.2 Esophageal obstruction; R13.19 Other dysphagia
CPT/HCPCS: 99213

== ENCOUNTER → 2023-04-05 11:05 | Outpatient (BNVA) | payer OTHER, SELFPAY | PROVIDERS: PCP Internal Medicine; Visit Provider Nurse Practitioner | DX: K21.9 Gastro-esophageal reflux disease without esophagitis (principal); K30 Functional dyspepsia; K90.89 Other intestinal malabsorption; K22.2 Esophageal obstruction; R13.19 Other dysphagia | CPT/HCPCS: 99212 ==

== ENCOUNTER 2023-04-26 11:08 | Outpatient (AMB) | payer OTHER, SELFPAY ==
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
[2023-04-26 11:10] VITALS: BP 130/70; BMI 39.3
== END 2023-04-26 11:38 | disposition home or self-care (01) ==
PROVIDERS: PCP Internal Medicine; Visit Provider Internal Medicine
DX: R20.2 Paresthesia of skin (principal); F33.0 Major depressive disorder, recurrent, mild; F41.1 Generalized anxiety disorder; K21.9 Gastro-esophageal reflux disease without esophagitis
CPT/HCPCS: 99214

== ENCOUNTER 2023-05-04 13:17 | Outpatient (AMB) | payer OTHER, SELFPAY ==
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
[2023-05-04 13:38] VITALS: BP 132/76; PULSE 88; RESP 14; O2SAT 98; BMI 39.7
== END 2023-05-04 13:39 | disposition home or self-care (01) ==
PROVIDERS: PCP Internal Medicine; Visit Provider Anesthesiology
DX: M89.8X1 Other specified disorders of bone, shoulder (principal); M19.019 Primary osteoarthritis, unspecified shoulder; E66.9 Obesity, unspecified; M25.511 Pain in right shoulder; G89.4 Chronic pain syndrome
CPT/HCPCS: 99203

== ENCOUNTER → 2023-05-04 13:17 | Outpatient (BNVA) | payer OTHER, SELFPAY | PROVIDERS: PCP Internal Medicine; Visit Provider Anesthesiology | DX: M19.011 Primary osteoarthritis, right shoulder (principal); M54.50 Low back pain, unspecified; M89.8X1 Other specified disorders of bone, shoulder; E66.9 Obesity, unspecified; G89.4 Chronic pain syndrome | CPT/HCPCS: 99202 ==

== ENCOUNTER 2023-06-07 13:11 | Outpatient (REF) | payer OTHER, SELFPAY ==
--- NOTE | 2023-06-07 13:16 | EMG_ITS ---
Chief complaint: Chronic back pain, history of degenerative disc per patient, new symptom of sharp pain and tingling on both feet, especially right calf Reason for referral: Evaluate for neuropathy Referred by: Dr. Faith Centeno Procedure done: Bilateral lower extremity NCS/EMG Precautions and/or limitations: None The limb temperature was monitored continuously and remained between 32-36 degrees C during the performance of the NCS. Nerve Conduction Studies Anti Sensory Summary Table ?Stim Site NR Onset (ms) Norm Onset (ms) Peak (ms) Norm Peak (ms) O-P Amp (?V) Norm O-P Amp Site1 Site2 Delta-0 (ms) Dist (cm) Naif (m/s) Norm Naif (m/s) Left Sural Anti Sensory (Lat Mall) Calf ? 2.3 3.4 <4.0 10.0 >5.0 Calf Lat Mall 2.3 14.0 61 Right Sural Anti Sensory (Lat Mall) Calf ? 2.9 3.5 <4.0 0.9 >5.0 Calf Lat Mall 2.9 14.0 48 Site 2 ? 2.9 3.5 1.8 Motor Summary Table ?Stim Site NR Onset (ms) Norm Onset (ms) O-P Amp (mV) Norm O-P Amp iAmp (mV) Amp (1st) (%) Site1 Site2 Delta-0 (ms) Dist (cm) Naif (m/s) Norm Naif (m/s) Left Peroneal Motor (Ext Dig Brev) Ankle ? 3.9 <4.0 5.0 >2.5 6.0 100.0 Ankle Ext Dig Brev 3.9 0.0 B Fib ? 10.9 4.6 5.8 92.0 B Fib Ankle 7.0 36.0 51 >40 Poplt ? 11.4 5.0 6.3 100.0 Poplt B Fib 0.5 5.0 100 >40 Right Peroneal Motor (Ext Dig Brev) Ankle ? 4.3 <4.0 4.5 >2.5 5.9 100.0 Ankle Ext Dig Brev 4.3 0.0 B Fib ? 10.7 4.6 5.9 102.2 B Fib Ankle 6.4 30.5 48 >40 Poplt ? 11.6 4.5 5.9 100.0 Poplt B Fib 0.9 6.0 67 >40 Left Tibial Motor (Abd Gudino Brev) Ankle NR <5 >2.5 Ankle Abd Gudino Brev 0.0 Knee NR Knee Ankle 0.0 >40 Right Tibial Motor Run #1 (Abd Gudino Brev) Ankle NR <5 >2.5 Ankle Abd Gudino Brev 0.0 Knee NR Knee Ankle 0.0 >40 Right Tibial Motor Run #2 (Abd Gudino Brev) Ankle NR <5 >2.5 Ankle Abd Gudino Brev 0.0 EMG ?Side Muscle Nerve Root Ins Act Fibs Psw Amp Dur Poly Recrt Int Pat Comment Right AbdHallucis MedPlantar S1-2 Nml Nml Nml Nml Nml 0 Nml Complete Right AntTibialis Dp Br Peron L4-5 Nml Nml Nml Nml Nml 0 Nml Complete Right PostTibialis Tibial L5, S1 Incr 1+ 1+ Nml Nml 0 Nml Complete Right MedGastroc Tibial S1-2 Incr 1+ 1+ Nml Nml 0 Nml Complete Right VastusMed Femoral L2-4 Nml Nml Nml Nml Nml 0 Nml Complete Left AbdHallucis MedPlantar S1-2 Nml Nml Nml Nml Nml 0 Nml Complete Left AntTibialis Dp Br Peron L4-5 Nml Nml Nml Nml Nml 0 Nml Complete Left PostTibialis Tibial L5, S1 Nml Nml Nml Nml Nml 0 Nml Complete Left MedGastroc Tibial S1-2 Nml Nml Nml Nml Nml 0 Nml Complete Left VastusMed Femoral L2-4 Nml Nml Nml Nml Nml 0 Nml Complete Paraspinal EMG ?Side Muscle Nerve Root Ins Act Fibs Psw Comment Right Lumbar Upper Rami Nml Nml Nml Right Lumbar Mid Rami Nml Nml Nml Right Lumbar Lower Rami Nml Nml Nml Left Lumbar Upper Rami Nml Nml Nml Left Lumbar Mid Rami Nml Nml Nml Left Lumbar Lower Rami Nml Nml Nml FINDINGS: Right peroneal motor nerve showed prolonged distal latency, normal amplitude and normal conduction velocity. Left peroneal motor nerve within normal. Left sural within normal. Right sural showed normal peak latencies distal latency, but small amplitude. I could not obtain responses from tibial nerves, bilateral. Not sure if technical/anatomical difficulty due to history of flat feet. All other nerves tested were within normal. Concentric needle EMG was performed in selected muscles of the bilateral lower extremity and lumbar paraspinals. Study revealed Signs of electric abnormalities as shown in the table below. Right posterior tibialis and medial gastrocnemius showed small PSWs, fibrillations and increased insertional activity. No denervation seen on peroneal innervated muscles. No denervation seen on lumbar paraspinals. IMPRESSION: 1. This is an abnormal study. 2. Unfortunately, I can not definitively distinguish between a chronic right lumbar radiculopathy L5-S1 versus a sciatic neuropathy. 3. There is no electrodiagnostic evidence for distal/peripheral neuropathy. CLINICAL COMMENT: . Further clinical correlation recommended. Thank you for your kind referral. Lori Jung MD, JERROD Board Certified, [place] [employer] and [employer] (ABPMR) Board Certified, [place] [employer] Electro[employer] (ABEM) CODIN [id number] x 2 MTDD
== END 2023-06-07 13:12 | disposition home or self-care (01) ==
LOC: HO.NEURO 13:11
PROVIDERS: PCP Internal Medicine; Visit Provider Internal Medicine
DX: R20.2 Paresthesia of skin (principal); M25.511 Pain in right shoulder; M89.8X1 Other specified disorders of bone, shoulder
CPT/HCPCS: 73030; 95886; 95909

== ENCOUNTER → 2023-06-07 13:16 | Outpatient (BNV) | payer OTHER, SELFPAY | PROVIDERS: PCP Internal Medicine; Visit Provider Physical Medicine & Rehabilitation | DX: M54.16 Radiculopathy, lumbar region (principal); M54.31 Sciatica, right side; M54.32 Sciatica, left side | CPT/HCPCS: 95886; 95909 ==

== ENCOUNTER 2023-06-15 11:05 | Outpatient (AMB) | payer OTHER, SELFPAY ==
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
[2023-06-15 11:24] VITALS: BP 130/76; PULSE 74; RESP 14; O2SAT 97; BMI 39.3
== END 2023-06-15 12:13 | disposition home or self-care (01) ==
PROVIDERS: PCP Internal Medicine; Visit Provider Anesthesiology
DX: M89.8X1 Other specified disorders of bone, shoulder (principal); M19.019 Primary osteoarthritis, unspecified shoulder; E66.9 Obesity, unspecified; M25.511 Pain in right shoulder; G89.4 Chronic pain syndrome
CPT/HCPCS: 99214

== ENCOUNTER → 2023-06-15 11:05 | Outpatient (BNVA) | payer OTHER, SELFPAY | PROVIDERS: PCP Internal Medicine; Visit Provider Anesthesiology | DX: M89.8X1 Other specified disorders of bone, shoulder (principal); M19.019 Primary osteoarthritis, unspecified shoulder; M25.511 Pain in right shoulder; E66.9 Obesity, unspecified; G89.4 Chronic pain syndrome; Z68.39 Body mass index [BMI] 39.0-39.9, adult | CPT/HCPCS: 99212 ==

== ENCOUNTER 2023-10-31 14:11 | Outpatient (AMB) | payer OTHER, SELFPAY ==
[2023-10-31 14:22] VITALS: BP 122/80; BMI 40.0
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
== END 2023-10-31 14:47 | disposition home or self-care (01) ==
PROVIDERS: PCP Internal Medicine; Visit Provider Internal Medicine
DX: Z00.00 Encounter for general adult medical examination without abnormal findings (principal); F33.0 Major depressive disorder, recurrent, mild; E66.01 Morbid (severe) obesity due to excess calories; Z68.41 Body mass index [BMI] 40.0-44.9, adult

== ENCOUNTER → 2023-10-31 14:11 | Outpatient (BNVA) | payer OTHER, SELFPAY | PROVIDERS: PCP Internal Medicine; Visit Provider Internal Medicine ==

== ENCOUNTER 2024-01-02 10:06 | Outpatient (REF) | payer OTHER, SELFPAY ==
--- NOTE | ~2024-01-02 | MM_ITS ---
EXAMINATION: MM SCREENING DIGITAL BREAST TOMOSYNTHESIS, BILATERAL CLINICAL INFORMATION: Screening. Asymptomatic. COMPARISON: Mammography: Comparison is made with available priors TECHNIQUE: Digital breast mammography with tomosynthesis is performed in both the craniocaudal and mediolateral oblique views along with computer-aided detection (CAD). FINDINGS: There are scattered areas of fibroglandular density (ACR BI-RADS breast composition Category b). There are no significant masses, abnormal calcifications, or other abnormalities. MM/MM tomosynthesis screening BI IMPRESSION: No mammographic evidence of malignancy. ASSESSMENT: BI-RADS BI-RADS 1 - Negative RECOMMENDATION: Routine annual mammography screening. 1 year F/U This examination should not preclude the clinical evaluation of a suspicious palpable abnormality. This patient's information was entered into a reminder system with a target due date for their next mammogram. Electronically signed by: Zeina Dimas DO 01/10/2024 08:17 AM [facility] [place]
--- NOTE | ~2024-01-02 | MM_ITS ---
EXAMINATION: BONE DENSITOMETRY CLINICAL INDICATION: Screening for osteoporosis. COMPARISON: This is the patient's baseline examination. TECHNIQUE: Using a [employer] DXA System (software version: 13.1) manufactured by [employer], dual-energy x-ray absorptiometry was performed of the lumbar spine and left hip. The images are of good technical quality. Summary results are attached. FINDINGS: LEFT FEMUR, NECK: BMD 0.800 g/cm2, Z-score -2.1, T-score -1.7, osteopenia. LEFT FEMUR, TOTAL: BMD 0.810 g/cm2, Z-score -2.4, T-score -1.6, osteopenia. AP SPINE L1-L4: BMD 0.987 g/cm2, Z-score -2.2, T-score -1.6, osteopenia. IDENTIFIED RISK FACTORS: Menopause, recurrent falls, low calcium intake, secondary osteoporosis (partial gastrectomy). HISTORY OF FRACTURE: None listed. MEDICATIONS: Calcium or multivitamin. Vitamin D. MM/XR DEXA axial skeleton IMPRESSION: 1. DIAGNOSIS: Osteopenia based on the lowest T-score value of -1.7 in the femoral neck applying World Health Organization criteria. 2. 10-YEAR FRACTURE RISK PREDICTION, FRAX: Major osteoporotic fracture (clinical spine, forearm, hip or shoulder) 3.4%. Hip fracture 0.3%. 3. Treatment Recommendations: NOF guidelines recommend consideration for treatment in postmenopausal women and men age 50 and older presenting with the following: -A hip or vertebral (clinical or morphometric) fracture. -T-score less than or equal to -2.5 at the femoral neck or spine after appropriate evaluation to exclude secondary causes. -Low bone mass at the hip or spine and a 10-year fracture probability by FRAX of greater than or equal to 3% for hip fracture or greater than or equal to 20% for major osteoporotic fracture based on the [place] adapted WHO algorithm. 4. Other Recommendations: All treatment decisions require clinical judgment and consideration of individual patient factors, including patient preferences, comorbidities, previous drug use, risk factors not captured in the FRAX model (e.g. frailty, falls, vitamin D deficiency, increased bone turnover, interval significant decline in bone density) and possible under or overestimation of fracture risk by FRAX. Additional medical evaluation for secondary cause of low bone mineral density may be appropriate. FUTURE SCAN RECOMMENDATION: People with diagnosed cases of osteoporosis or at high risk for fracture should have regular bone mineral density tests. For patients eligible for Medicare, routine testing is allowed once every 2 years. The testing frequency can be increased to one year for patients who have rapidly progressing disease, those who are receiving or discontinuing medical therapy to restore bone mass, or have additional risk factors. Electronically signed by: Dmitry Brooks MD 01/03/2024 12:25 PM [id number]
== END 2024-01-02 10:07 | disposition home or self-care (01) ==
LOC: HO.MAMMO 10:06
PROVIDERS: Visit Provider Internal Medicine
DX: Z12.31 Encounter for screening mammogram for malignant neoplasm of breast (principal); Z13.820 Encounter for screening for osteoporosis; Z78.0 Asymptomatic menopausal state
CPT/HCPCS: 77063; 77067; 77080

== ENCOUNTER → 2024-01-02 11:00 | Outpatient (BNV) | payer OTHER, SELFPAY | PROVIDERS: Visit Provider Internal Medicine | DX: Z12.31 Encounter for screening mammogram for malignant neoplasm of breast (principal) | CPT/HCPCS: 77063; 77067 ==

== ENCOUNTER 2024-04-04 14:19 | Outpatient (AMB) | payer OTHER, SELFPAY ==
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
[2024-04-04 14:36] VITALS: BP 122/82; PULSE 98; TEMP 37.4; O2SAT 96; BMI 40.7
== END 2024-04-04 16:02 | disposition home or self-care (01) ==
PROVIDERS: Visit Provider Physician Assistant
DX: M79.605 Pain in left leg (principal); M79.89 Other specified soft tissue disorders; R03.0 Elevated blood-pressure reading, without diagnosis of hypertension; R35.89 Other polyuria; R63.1 Polydipsia

== ENCOUNTER 2024-04-04 15:02 | Outpatient (REF) | payer OTHER, SELFPAY ==
--- NOTE | ~2024-04-04 | US_ITS ---
EXAMINATION: US TRIPLEX LOWER EXTREMITY, LEFT CLINICAL INFORMATION: Pain, left lower extremity. COMPARISON: None available. TECHNIQUE: Color-flow triplex imaging with spectral analysis and compression Doppler were performed on the left lower extremity. FINDINGS: Respiratory variation, normal compression and augmented flow are noted throughout the left lower extremity. The visualized common femoral vein, superficial femoral vein, profunda femoral vein, popliteal vein and midcalf peroneal and posterior tibial venous segments show no evidence of deep venous thrombosis. There is no Harkins's cyst. US/US venous duplex LE LT IMPRESSION: No acute deep venous thrombosis involving the left lower extremity. Negative exam.. Electronically signed by: Ace Casas MD 04/04/2024 03:31 PM RODRÍGUEZ
== END 2024-04-04 15:03 | disposition home or self-care (01) ==
LOC: HO.HMGCX 15:02
PROVIDERS: PCP Internal Medicine; Visit Provider Physician Assistant
DX: M79.605 Pain in left leg (principal); R60.0 Localized edema; R03.0 Elevated blood-pressure reading, without diagnosis of hypertension; R63.1 Polydipsia; R35.89 Other polyuria
CPT/HCPCS: 81003; 82948; 93971; 99212

== ENCOUNTER → 2024-04-04 15:07 | Outpatient (BNV) | payer OTHER, SELFPAY | PROVIDERS: PCP Internal Medicine; Visit Provider Radiology Diagnostic Radiology | DX: M79.662 Pain in left lower leg (principal) | CPT/HCPCS: 93971 ==

== ENCOUNTER 2024-04-09 10:32 | Outpatient (REF) | payer OTHER, SELFPAY ==
[2024-04-09 12:33] LABS: Alanine Aminotransferase 18 U/L (0-31); Albumin Level 3.9 g/dL (3.5-5.0); Alkaline Phosphatase 111 U/L (39-117); Anion Gap 12 (12-20); Aspartate Amino Transferase 17 U/L (5-31); Bilirubin Total 0.3 mg/dL (0.0-1.0); Blood Urea Nitrogen 13 mg/dL (9-16); Calcium 9.5 mg/dL (8.4-10.2); Carbon Dioxide 27 mmol/L (22-29); Chloride 108 mmol/L (96-108); Estimated Glomerular Filt Rate > 60; Glucose Random 70 mg/dL (60-115); Iron 105 mcg/dL (30-160); Percent Iron Saturation 37 % (15-50); Potassium 4.7 mmol/L (3.3-5.1); Sodium 142 mmol/L (135-145); Thyroid Stimulating Hormone 2.45 uIU/mL (0.32-4.0); Total Iron Binding Capacity 284 mcg/dL (228-428); Total Protein 7.4 g/dL (6.5-8.0); Unsaturated Iron Binding 179 ug/dL; Vitamin D 25-OH Total 26.7 ng/mL (>30)
== END 2024-04-09 10:33 | disposition home or self-care (01) ==
LOC: HO.LAB 10:32
PROVIDERS: PCP Internal Medicine; Visit Provider Internal Medicine
DX: E66.9 Obesity, unspecified (principal); D64.9 Anemia, unspecified; R53.83 Other fatigue; E55.9 Vitamin D deficiency, unspecified
CPT/HCPCS: 36415; 80053; 82306; 83540; 84443

== ENCOUNTER 2024-04-10 08:56 | Outpatient (REF) | payer OTHER, SELFPAY ==
[2024-04-10 09:14] LABS: MANUAL DIFF FLAG NO
[2024-04-10 09:40] LABS: Basophils Percent Auto 0.2 % (0-2); Eosinophils Percent Auto 0.2 % (0-4); Hematocrit 31.2 % (37.0-47.0); Hemoglobin 10.5 g/dl (12.0-16.0); Imm Gran Abs Auto 0.01 X10*3/uL (0.00-0.03); Imm Gran Pct Auto 0.2 % (0.0-0.4); Lymphocytes Absolute Auto 2.4 X10*3/uL (1.2-4.9); Lymphocytes Percent Auto 43.3 % (20-40); Mean Corpuscular HGB Conc 33.7 g/dl (31.0-35.0); Mean Corpuscular Hemoglobin 30.3 pg (27.0-33.0); Mean Corpuscular Volume 90.2 fL (80.0-98.0); Mean Platelet Volume 8.9 fL (9.4-12.3); Monocytes Absolute Auto 0.5 X10*3/uL (0.1-1.2); Monocytes Percent Auto 8.9 % (2-11); NRBC Pct Auto 0.4 /100WBC (0.0-0.2); Neutrophils Absolute Auto 2.7 x10*3/uL (2.0-8.3); Neutrophils Percent Auto 47.2 % (45-73); Platelet Count 274 X10*3/uL (160-400); Red Blood Count 3.46 X10*6/uL (4.20-5.50); Red Cell Distribution Width 14.3 % (11.0-16.0); White Blood Count 5.6 X10*3/uL (4.8-10.8)
[2024-04-10 10:17] LABS: Alanine Aminotransferase 13 U/L (0-31); Albumin Level 3.8 g/dL (3.5-5.0); Alkaline Phosphatase 104 U/L (39-117); Anion Gap 12 (12-20); Aspartate Amino Transferase 18 U/L (5-31); Bilirubin Total 0.3 mg/dL (0.0-1.0); Blood Urea Nitrogen 18 mg/dL (9-16); Calcium 8.8 mg/dL (8.4-10.2); Carbon Dioxide 27 mmol/L (22-29); Chloride 109 mmol/L (96-108); Cholesterol 142 mg/dL (<200); Estimated Glomerular Filt Rate 58; Glucose Fasting 81 mg/dL (60-99); HDL Cholesterol 67 mg/dL (>40); LDL Cholesterol Calculated 68 mg/dL (<100); Potassium 4.5 mmol/L (3.3-5.1); Sodium 143 mmol/L (135-145); Total Protein 7.3 g/dL (6.5-8.0); Triglycerides 36 mg/dL (<150)
[2024-04-10 10:44] LABS: Folate 5.3 ng/mL (> or = 4.0); Vitamin B12 950 pg/mL (200-900)
[2024-04-14 13:09] LABS: Vitamin D 25-OH, D2 <4 ng/mL; Vitamin D 25-OH, D3 24 ng/mL; Vitamin D 25-OH, Total 24 ng/mL (30-100)
== END 2024-04-10 08:57 | disposition home or self-care (01) ==
LOC: HO.LAB 08:56
PROVIDERS: PCP Internal Medicine; Visit Provider Internal Medicine
DX: Z00.00 Encounter for general adult medical examination without abnormal findings (principal); E66.9 Obesity, unspecified; E53.8 Deficiency of other specified B group vitamins; E55.9 Vitamin D deficiency, unspecified
CPT/HCPCS: 36415; 80053; 80061; 82306; 82607; 82746; 85025

== ENCOUNTER 2024-04-16 14:41 | Outpatient (AMB) | payer OTHER, SELFPAY ==
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
[2024-04-16 14:58] VITALS: BP 132/80; BMI 40.7
--- OUTSIDE RECORDS SUMMARY | 2024-04-16 18:36 | XMS_ITS | Encounter Summary ---
Author Organization [facility] Address [address] [place] [address] Care Team Providers Care Confectionery Cooker Name Role Phone Ranjit Ro MD Primary Care Provider Unavail able Shea Freitas MD Primary Care Provider Rosie blancas [facility], Pcp Primary Care Provider Unavailabl e Encounter Details Date Type Department Care Team Description 12/04/2009 Hospital Medical Records [address] [place] [id number] Ludin, Fred Social History Tobacco Use Types Packs/Day Years Used Date Smoking Tobacco: Never Smokeless Tobacco: Never Alcohol Use Standard Drinks/Week Comments Yes 0 (1 standard drink = 0.6 oz pur e alcohol) 8, occ wine cooler Sex Assigned at Date Recorded Not on file documented as of this encounter Plan of Treatment Not on file documented as of this encounter Visit Diagnoses Not on filedocumented in this encounter Care Teams Confectionery Cooker Relationship Specialty Start Date End Date Ranjit Ro MD PCP - General 07/20/01 01/23/14 Shea Freitas MD PCP - General Internal Medicine 01/24/14 03/13/17 Melony Tamez PCP - General Internal Medicine 03/14/17 documented as of this encounter
--- OUTSIDE RECORDS SUMMARY | 2024-04-16 18:36 | XMS_ITS | Encounter Summary ---
Author Organization [facility] Address [address] [place] [address] Care Team Providers Care Broaching Machine Operator Name Role Phone Shea Freitas MD Primary Care Provider Rosie blancas [facility], Pcp Primary Care Provider Unavailabl e Encounter Details Date Type Department Care Team Description 07/09/2015 Application Dba Report Medical Records [address] [place] [id number] Abstract, Provider Social History Tobacco Use Types Packs/Day Years Used Date Smoking Tobacco: Never Smokeless Tobacco: Never Alcohol Use Standard Drinks/Week Comments Yes 0 (1 standard drink = 0.6 oz pur e alcohol) rarely, occ wine cooler Sex Assigned at Date Recorded Not on file documented as of this encounter Plan of Treatment Not on file documented as of this encounter Visit Diagnoses Not on filedocumented in this encounter Care Teams Broaching Machine Operator Relationship Specialty Start Date End Date Shea Freitas MD PCP - General Internal Medicine 01/24/14 03/13/17 [facility], Pcp PCP - General Internal Medicine 03/14/17 documented as of this encounter
--- OUTSIDE RECORDS SUMMARY | 2024-04-16 18:36 | XMS_ITS | Encounter Summary ---
Author Organization [facility] Address [address] [place] [address] Care Team Providers Care Squadron Worker Name Role Phone Ranjit Ro MD Primary Care Provider Unavail able Shea Freitas MD Primary Care Provider Yolandava magalis [facility], Pcp Primary Care Provider Unavailabl e Encounter Details Date Type Department Care Team Description 11/20/2009 Leasing Director Report Medical Records [address] [place] [id number] Juni Wilder MD Social History Tobacco Use Types Packs/Day Years Used Date Smoking Tobacco: Never Alcohol Use Standard Drinks/Week Comments No 0 (1 standard drink = 0.6 oz pur e alcohol) Sex Assigned at Date Recorded Not on file documented as of this encounter Plan of Treatment Not on file documented as of this encounter Visit Diagnoses Not on filedocumented in this encounter Care Teams Squadron Worker Relationship Specialty Start Date End Date Ranjit Ro MD PCP - General 07/20/01 01/23/14 Shea Freitas MD PCP - General Internal Medicine 01/24/14 03/13/17 [facility], Pcp PCP - General Internal Medicine 03/14/17 documented as of this encounter
--- OUTSIDE RECORDS SUMMARY | 2024-04-16 18:36 | XMS_ITS | Encounter Summary ---
Author Organization [facility] Address [address] [place] [address] Care Team Providers Care Components Engineer Name Role Phone Shea Freitas MD Primary Care Provider Rosie blancas [facility], Pcp Primary Care Provider Unavailabl e Encounter Details Date Type Department Care Team Description 02/12/2016 Release of Information Medical Records [address] [place] [address] Abstract, Provider Social History Tobacco Use Types [...] on filedocumented in this encounter Care Teams Components Engineer Relationship Specialty Start Date End Date Shea Freitas MD PCP - General Internal Medicine 01/24/14 03/13/17 [facility], Pcp PCP - General Internal Medicine 03/14/17 documented as of this encounter
--- OUTSIDE RECORDS SUMMARY | 2024-04-16 18:36 | XMS_ITS | Encounter Summary ---
[facility] Address [address] [place] [address] Care Team Providers Care Distribution Technician Name Role Phone Shea Freitas MD Primary Care Provider Rosie blancas [facility], Pcp Primary Care Provider Unavailabl e Reason for Visit * Reason Onset Date Comments REFERRAL 05/17/2016 Consultatation Encounter Details Date Type Department Care Team Description 05/17/2016 Telephone Gastroenterology - [address] [address] Stephan Morton MD REFERRAL (Consultatation) Social History Tobacco Use Types Packs/Day Years Used Date Smoking Tobacco: Never Smokeless Tobacco: Never Alcohol Use Standard Drinks/Week Comments Yes 0 (1 standard drink = 0.6 oz pur e alcohol) rarely, occ wine cooler Sex Assigned at Date Recorded Not on file documented as of this encounter Miscellaneous Notes * Telephone Encounter - Neeta Jimenez - 05/17/2016 10:00 AM EDT Please verify with patient if she wants colonoscpy scheduled on 05/18/16 or consultation 1st (referral placed) for abdominal pain? documented in this encounter Plan of Treatment Not on file documented as of this encounter Visit Diagnoses Not on filedocumented in this encounter Care Teams Distribution Technician Relationship Specialty Start Date End Date Shea Freitas MD PCP - General Internal Medicine 01/24/14 03/13/17 [facility], Pcp PCP - General Internal Medicine 03/14/17 documented as of this encounter
--- OUTSIDE RECORDS SUMMARY | 2024-04-16 18:36 | XMS_ITS | Encounter Summary ---
Author Organization [facility] Address [address] [place] [address] Care Team Providers Care Senior Project Accountant Name Role Phone Ranjit Ro MD Primary Care Provider Unavail able Grzegorz Gibson MD Primary Care Provider Unavail able Kylah Osullivan Primary Care Provider [phone] Hannah Pope Primary Care Provider [phone] Doris Aguilera Primary Care Provider Unavail able Shea Freitas MD Primary Care Provider [facility], Pcp Primary Care Provider Unavailabl e Encounter Details Date Type Department Care Team Description 02/16/1997 [employer] [facility] - [address] [address] Joseph Velásquez LUMBAGO Social History Tobacco Use Types Packs/Day Years Used Date Smoking Tobacco: Never Assessed Sex Assigned at Date Recorded Not on file documented as of this encounter Plan of Treatment Not on file documented as of this encounter Visit Diagnoses Diagnosis Lumbago documented in this encounter Care Teams Senior Project Accountant Relationship Specialty Start Date End Date Ranjit Ro MD PCP - General 07/20/01 01/23/14 Grzegorz Gibson MD PCP - General 03/20/01 07/19/01 [address]yl[address] Osullivan [address] [address] PCP - General 08/09/00 03/19/01 Hannah Pope [address] [place] [address] PCP - General 06/07/1997 08/08/00 Doris Aguilera PCP - General 11/08/1991 06/06/1997 Shea Freitas MD PCP - General Internal Medicine 01/24/14 03/13/17 [facility], Pcp PCP - General Internal Medicine 03/14/17 documented as of this encounter
--- OUTSIDE RECORDS SUMMARY | 2024-04-16 18:36 | XMS_ITS | Encounter Summary ---
Author Organization [facility] Address [address] [place] [address] Care Team Providers Care Public Address System Mechanic Name Role Phone Ranjit Ro MD Primary Care Provider Unavail able Shea Freitas MD Primary Care Provider Rosie blancas [facility], Pcp Primary Care Provider Unavailabl e Encounter Details Date Type Department Care Team Description 11/27/2009 Hospital Medical Records [address] [place] [address] Ludin, Fred Social History Tobacco Use Types [...] on filedocumented in this encounter Care Teams Public Address System Mechanic Relationship Specialty Start Date End Date Ranjit Ro MD PCP - General 07/20/01 01/23/14 Shea Freitas MD PCP - General Internal Medicine 01/24/14 03/13/17 Melony Tamez PCP - General Internal Medicine 03/14/17 documented as of this encounter
--- OUTSIDE RECORDS SUMMARY | 2024-04-16 18:36 | XMS_ITS | Encounter Summary ---
Author Organization [facility] Address [address] [place] [address] Care Team Providers Care Order Puller Name Role Phone Shea Freitas MD Primary Care Provider [facility], Pcp Primary Care Provider Unavailabl e Reason for Visit * Reason Onset Date Comments Medication 03/02/2016 Encounter Details Date Type Department Care Team Description 03/02/2016 Telephone Gastroenterology - [address] [address] Stephan Morton MD Medication Social History Tobacco Use Types Packs/Day Years Used Date Smoking Tobacco: Never Smokeless Tobacco: Never Alcohol Use Standard Drinks/Week Comments Yes 0 (1 standard drink = 0.6 oz pur e alcohol) rarely, occ wine cooler Sex Assigned at Date Recorded Not on file documented as of this encounter Miscellaneous Notes * Telephone Encounter - Stephan Morton MD - 03/02/2016 10:57 AM EST Prescribed * Telephone Encounter - Ana Canales - 03/02/2016 10:55 AM EST Patient has scheduled a procedure, please prescribe prep. Thank you! documented in this encounter Plan of Treatment Not on file documented as of this encounter Visit Diagnoses Not on filedocumented in this encounter Care Teams Order Puller Relationship Specialty Start Date End Date Shea Freitas MD PCP - General Internal Medicine 01/24/14 [facility] 03/14/17 documented as of this encounter
--- OUTSIDE RECORDS SUMMARY | 2024-04-16 18:36 | XMS_ITS | Encounter Summary ---
Author Organization [facility] Address [address] [place] [address] Care Team Providers Care Stain Remover Name Role Phone Ranjit Ro MD Primary Care Provider Unavail able Shea Puga MD Primary Care Provider Rosei blancas [facility], Pcp Primary Care Provider Unavailabl e Encounter Details Date Type Department Care Team Description 12/11/2009 Release of Information Medical Records [address] [place] [address] Abstract, Provider Social History Tobacco Use Types Packs/Day Years Used Date Smoking Tobacco: Never Alcohol Use Standard Drinks/Week Comments No 0 (1 standard drink = 0.6 oz pur e alcohol) Sex Assigned at Date Recorded Not on file documented as of this encounter Nursing Notes * 12/11/2009 12:00 PM EDT >> DOMINGO PUGA Fri Dec 11, 2009 3:51 PM Rec'd request from [facility]. [facility] to [facility] documented in this encounter Plan of Treatment Not on file documented as of this encounter Visit Diagnoses Not on filedocumented in this encounter Care Teams Stain Remover Relationship Specialty Start Date End Date Ranjit Ro MD PCP - General 07/20/01 01/23/14 Shea Puga MD PCP - General Internal Medicine 01/24/14 03/13/17 [facility], Pcp PCP - General Internal Medicine 03/14/17 documented as of this encounter
--- OUTSIDE RECORDS SUMMARY | 2024-04-16 18:36 | XMS_ITS | Encounter Summary ---
Author Organization [facility] Address [address] [place] [address] Care Team Providers Care Customer Engineering Specialist Name Role Phone Shea Freitas MD Primary Care Provider Unava ilwilly [facility], Pcp Primary Care Provider Unavailabl e Reason for Visit * Reason Comments E-prescribe Rx Request Encounter Details Date Type Department Care Team Description 05/02/2016 Refill Physiatry - [address] [address] Kelvin Tran DO E-prescribe Rx Request Social History Tobacco Use Types Packs/Day Years Used Date Smoking Tobacco: Never Smokeless Tobacco: Never Alcohol Use Standard Drinks/Week Comments Yes 0 (1 standard drink = 0.6 oz pur e alcohol) rarely, occ wine cooler Sex Assigned at Date Recorded Not on file documented as of this encounter Miscellaneous Notes * Telephone Encounter - Essie Miller M.A. - 05/02/2016 2:38 PM EDT Last ov 04/19/16 Last refill 03/01/16 Next visit 10/20/16 documented in this encounter Plan of Treatment Not on file documented as of this encounter Visit Diagnoses Not on filedocumented in this encounter Care Teams Customer Engineering Specialist Relationship Specialty Start Date End Date Shea Freitas MD PCP - General Internal Medicine 01/24/14 03/13/17 [facility], Pcp PCP - General Internal Medicine 03/14/17 documented as of this encounter
--- OUTSIDE RECORDS SUMMARY | 2024-04-16 18:36 | XMS_ITS | Encounter Summary ---
Author Organization [facility] Address [address] [place] [address] Care Team Providers Care Svp Research & Ebusiness Operations Name Role Phone Ranjit Ro MD Primary Care Provider Unavail able Shea Freitas MD Primary Care Provider Rosie blancas [facility], Pcp Primary Care Provider Unavailabl e Encounter Details Date Type Department Care Team Description 12/01/2009 Hospital Medical Records [address] [place] [address] Ludin, Fred Social History Tobacco Use Types [...] on filedocumented in this encounter Care Teams Svp Research & Ebusiness Operations Relationship Specialty Start Date End Date Ranjit Ro MD PCP - General 07/20/01 01/23/14 Shea Freitas MD PCP - General Internal Medicine 01/24/14 03/13/17 Melony Tamez PCP - General Internal Medicine 03/14/17 documented as of this encounter
--- OUTSIDE RECORDS SUMMARY | 2024-04-16 18:36 | XMS_ITS | Encounter Summary ---
Author Organization [facility] Address [address] [place] [address] Care Team Providers Care Clinical Nursing Director Name Role Phone Shea Freitas MD Primary Care Provider [facility], Pcp Primary Care Provider Unavailabl e Reason for Visit * Reason Onset Date Comments Drooping Eyelid 11/28/2016 Encounter Details Date Type Department Care Team Description 11/28/2016 Telephone Medicine/Pediatrics - [address] [id number] Shea Freitas MD Drooping Eyelid Social History Tobacco Use Types Packs/Day Years Used Date Smoking Tobacco: Never Smokeless Tobacco: Never Alcohol Use Standard Drinks/Week Comments Yes 0 (1 standard drink = 0.6 oz pur e alcohol) 8, occ wine cooler Sex Assigned at Date Recorded Not on file documented as of this encounter Miscellaneous Notes * Telephone Encounter - Pablo Malone R.N. - 11/28/2016 11:26 AM EDT Tingling sensation in face started last week which was itchy no rash. Now reports that when talkingleft eye droops and presents with a pulling sensation and some droop of mouth but unsure if re: to dentures. Appt booked for 11/29/16 as requested. Homecare instruction provided/reinforced for symptom management, reviewed the signs and symptoms to watch for that would require immediate attention. Verbalized understanding and is agreeable to plan. * Telephone Encounter - Brenda Blackman - 11/28/2016 10:51 AM EDT Symptoms patient is presenting: states tingling in face mouth not lining up droping eye If pain or injury related was it due to an accident at work or from a motor vehicle accident? NO If yes, gather 3rd green party insurance information Date of accident/Injury: How long has patient had these symptoms?: last week PCP: Shea Freitas Payor: MEDICARE-Loginza / Plan: MEDICARE-Loginza / Product Type: MEDICARE [id number] documented in this encounter Plan of Treatment Not on file documented as of this encounter Visit Diagnoses Not on filedocumented in this encounter Care Teams Clinical Nursing Director Relationship Specialty Start Date End Date Shea Freitas MD PCP - General Internal Medicine 01/24/14 03/13/17 [facility] PCP - General Internal Medicine 03/14/17 documented as of this encounter
--- OUTSIDE RECORDS SUMMARY | 2024-04-16 18:36 | XMS_ITS | Encounter Summary ---
Author Organization [facility] Address [address] [place] [address] Care Team Providers Care Watch Repair Person Name Role Phone Ranjit Ro MD Primary Care Provider Unavail able Shea Freitas MD Primary Care Provider Yolandava magalis [facility], Pcp Primary Care Provider Unavailabl e Encounter Details Date Type Department Care Team Description 01/11/2010 Grab Setter Report Medical Records [address] [place] [address] Mehran Vaca Social History Tobacco Use Types Packs/Day Years Used Date Smoking Tobacco: Never Alcohol Use Standard Drinks/Week Comments No 0 (1 standard drink = 0.6 oz pur e alcohol) Sex Assigned at Date Recorded Not on file documented as of this encounter Plan of Treatment Not on file documented as of this encounter Visit Diagnoses Not on filedocumented in this encounter Care Teams Watch Repair Person Relationship Specialty Start Date End Date Ranjit Ro MD PCP - General 07/20/01 01/23/14 Shea Freitas MD PCP - General Internal Medicine 01/24/14 03/13/17 [facility], Pcp PCP - General Internal Medicine 03/14/17 documented as of this encounter
--- OUTSIDE RECORDS SUMMARY | 2024-04-16 18:36 | XMS_ITS | Encounter Summary ---
Author Organization [facility] Address [address] [place] [address] Care Team Providers Care Refrigeration Lead Name Role Phone Ranjit Ro MD Primary Care Provider Unavail able Grzegorz Gibson MD Primary Care Provider Unavail able Kylah Osullivan Primary Care Provider [phone] Hannah Pope Primary Care Provider [phone] Doris Aguilera Primary Care Provider Unavail able Shea Freitas MD Primary Care Provider [facility], Pcp Primary Care Provider Unavailabl e Encounter Details Date Type Department Care Team Description 11/13/1958 Secondary Set Up Man Report Medical Records [address] [place] [id number] [facility], Fred Social History Tobacco Use Types Packs/Day Years Used Date Smoking Tobacco: Never Assessed Sex Assigned at Date Recorded Not on file documented as of this encounter Plan of Treatment Not on file documented as of this encounter Visit Diagnoses Not on filedocumented in this encounter Care Teams Refrigeration Lead Relationship Specialty Start Date End Date Ranjit Ro MD PCP - General 07/20/01 01/23/14 Grzegorz Gibson MD PCP - General 03/20/01 07/19/01 Kylah Osullivan [address] [address] PCP - General 08/09/00 03/19/01 Hannah Pope [address] [place] [address] PCP - General 06/07/1997 08/08/00 Doris Aguilera PCP - General 11/08/1991 06/06/1997 Shea Freitas MD PCP - General Internal Medicine 01/24/14 03/13/17 [facility], Pcp PCP - General Internal Medicine 03/14/17 documented as of this encounter
--- OUTSIDE RECORDS SUMMARY | 2024-04-16 18:36 | XMS_ITS | Encounter Summary ---
[facility] Address [address] [place] [address] Care Team Providers Care Mainframe Systems Programmer Name Role Phone Shea Freitas MD Primary Care Provider Rosei blancas [facility], Pcp Primary Care Provider Unavailabl e Encounter Details Date Type Department Care Team Description 05/16/2016 Business Doc Medical Records [address] [place] [address] Abstract, Provider Social History Tobacco Use Types [...] on filedocumented in this encounter Care Teams Mainframe Systems Programmer Relationship Specialty Start Date End Date Shea Freitas MD PCP - General Internal Medicine 01/24/14 03/13/17 [facility], Pcp PCP - General Internal Medicine 03/14/17 documented as of this encounter
--- OUTSIDE RECORDS SUMMARY | 2024-04-16 18:36 | XMS_ITS | Encounter Summary ---
Author [facility] Address [address] [place] [address] Care Team Providers Care Chiropractor Assistant Name Role Phone Ranjit Ro MD Primary Care Provider Unavail able Shea Freitas MD Primary Care Provider Rosie blancas [facility], Pcp Primary Care Provider Unavailabl e Encounter Details Date Type Department Care Team Description 08/15/2013 Business Doc Medical Records [address] [place] [address] Abstract, Provider Social History Tobacco Use Types [...] on filedocumented in this encounter Care Teams Chiropractor Assistant Relationship Specialty Start Date End Date Ranjit Ro MD PCP - General 07/20/01 01/23/14 Shea Freitas MD PCP - General Internal Medicine 01/24/14 03/13/17 Dashawn, Melony PCP - General Internal Medicine 03/14/17 documented as of this encounter
--- OUTSIDE RECORDS SUMMARY | 2024-04-16 18:36 | XMS_ITS | Encounter Summary ---
Author Organization [facility] Address [address] [place] [address] Care Team Providers Care Podiatric Physician Name Role Phone Shea Freitas MD Primary Care Provider [facility], Pcp Primary Care Provider Unavailabl e Encounter Details Date Type Department Care Team Description 10/19/2016 Orders Only Medicine/Pediatrics - [address] [phone] Shea Freitas MD Unspecified vitamin D deficiency (Primary Dx); Hypocalcemia Social History Tobacco Use Types Packs/Day Years Used Date Smoking Tobacco: Never Smokeless Tobacco: Never Alcohol Use Standard Drinks/Week Comments Yes 0 (1 standard drink = 0.6 oz pur e alcohol) 8, occ wine cooler Sex Assigned at Date Recorded Not on file documented as of this encounter Plan of Treatment Not on file documented as of this encounter Results * (ABNORMAL) 25 HYDROXY INCLUDES FRACTIONS IF PERFORMED (11/29/2016 10:29 AM EDT) 25-HYDROXY VITAMIN D TOTAL 12(L) 30 - 80 ng/ml 11/29/2016 2:47 PM EDT [facility] Comment: Vitamin D Reference Ranges ??Deficiency: ? <20 ng/mL ??Insufficiency: ?20-29 ng/mL ??Optimal: ?30-80 ng/mL ??High: ? >80 ng/mL 11/29/2016 10:2 9 AM EDT 11/29/2016 10:29 AM EDT Shea Freitas MD LAB Performing Organization Address City/State/[facility] Co de Phone Number [address] documented in this encounter Visit Diagnoses Diagnosis Unspecified vitamin D deficiency- Primary Hypocalcemia documented in this encounter Care Teams Podiatric Physician Relationship Specialty Start Date End Date Shea Freitas MD PCP - General Internal Medicine 01/24/14 03/13/17 [facility] PCP - General Internal Medicine 03/14/17 documented as of this encounter
--- OUTSIDE RECORDS SUMMARY | 2024-04-16 18:36 | XMS_ITS | Encounter Summary ---
Author Organization [facility] Address [address] [place] [address] Care Team Providers Care Intelligence Chief Name Role Phone Ranjit Ro MD Primary Care Provider Unavail able Shea Freitas MD Primary Care Provider Rosie blancas [facility], Pcp Primary Care Provider Unavailabl e Encounter Details Date Type Department Care Team Description 11/12/2009 Hospital Medical Records [address] [place] [address] Mehran Vaca Social History Tobacco Use Types [...] on filedocumented in this encounter Care Teams Intelligence Chief Relationship Specialty Start Date End Date Ranjit Ro MD PCP - General 07/20/01 01/23/14 Shea Freitas MD PCP - General Internal Medicine 01/24/14 03/13/17 Melony Tamez PCP - General Internal Medicine 03/14/17 documented as of this encounter
--- OUTSIDE RECORDS SUMMARY | 2024-04-16 18:36 | XMS_ITS | Encounter Summary ---
Author Organization [facility] Address [address] [place] [address] Care Team Providers Care Feather Separator Name Role Phone Ranjit Ro MD Primary Care Provider Unavail able Shea Freitas MD Primary Care Provider Rosie blancas [facility], Pcp Primary Care Provider Unavailabl e Encounter Details Date Type Department Care Team Description 12/01/2009 Hospital Medical Records [address] [place] [address] Ludin, Fred Social History Tobacco Use Types [...] on filedocumented in this encounter Care Teams Feather Separator Relationship Specialty Start Date End Date Ranjit Ro MD PCP - General 07/20/01 01/23/14 Shea Freitas MD PCP - General Internal Medicine 01/24/14 03/13/17 Melony Tamez PCP - General Internal Medicine 03/14/17 documented as of this encounter
--- OUTSIDE RECORDS SUMMARY | 2024-04-16 18:36 | XMS_ITS | Encounter Summary ---
Author Organization [employer] [facility] Address [address] [place] [address] Care Team Providers Care Certified Orthotist/Pedorthist Name Role Phone Ranjit Ro MD Primary Care Provider Unavail Shea Ordaz MD Primary Care Provider [facility], Pcp Primary Care Provider Unavailabl e Reason for Visit * Reason Onset Date Comments Medication 08/09/2010 BACK PAIN Encounter Details Date Type Department Care Team Description 08/09/2010 Telephone Chiropractic - [place] [address] [place] [address] Donavon Mccallum D.C. Medication (BACK PAIN) Social History Tobacco Use Types Packs/Day Years Used Date Smoking Tobacco: Never Smokeless Tobacco: Never Alcohol Use Standard Drinks/Week Comments No 0 (1 standard drink = 0.6 oz pur e alcohol) Sex Assigned at Date Recorded Not on file documented as of this encounter Miscellaneous Notes * Telephone Encounter - Ronda Jay - 08/18/2010 11:05 AM EDT * Telephone Encounter - Lizzie Araujo - 08/09/2010 8:34 AM EDT Symptoms patient is presenting: patient has appt today and is having bad back pain How long has patient had these symptoms?: PCP: Ranjit Ro MD Pay[place]: [place] Plan: [place] Product Type: MEDICARE [id number] documented in this encounter Plan of Treatment Not on file documented as of this encounter Visit Diagnoses Not on filedocumented in this encounter Care Teams Certified Orthotist/Pedorthist Relationship Specialty Start Date End Date Ranjit Ro MD PCP - General 07/20/01 01/23/14 Shea Freitas MD PCP - General Internal Medicine 01/24/14 03/13/17 [facility] PCP - General Internal Medicine 03/14/17 documented as of this encounter
--- OUTSIDE RECORDS SUMMARY | 2024-04-16 18:36 | XMS_ITS | Encounter Summary ---
Author Organization [facility] Address [address] [place] [address] Care Team Providers Care Upper Leather Sorter Name Role Phone Ranjit Ro MD Primary Care Provider Unavail able Shea Freitas MD Primary Care Provider Rosie blancas [facility], Pcp Primary Care Provider Unavailabl e Encounter Details Date Type Department Care Team Description 10/16/2009 Hospital Medical Records [address] [place] [address] Ludin, Fred Social History Tobacco Use Types [...] on filedocumented in this encounter Care Teams Upper Leather Sorter Relationship Specialty Start Date End Date Ranjit Ro MD PCP - General 07/20/01 01/23/14 Shea Freitas MD PCP - General Internal Medicine 01/24/14 03/13/17 Melony Tamez PCP - General Internal Medicine 03/14/17 documented as of this encounter
--- OUTSIDE RECORDS SUMMARY | 2024-04-16 18:36 | XMS_ITS | Encounter Summary ---
Author Organization [facility] Address [address] [place] [address] Care Team Providers Care Data Migration Consultant Name Role Phone Shea Freitas MD Primary Care Provider [facility], Pcp Primary Care Provider Unavailabl e Reason for Visit * Reason Onset Date Comments Faxed Refill 11/11/2016 Encounter Details Date Type Department Care Team Description 11/11/2016 Refill Medicine/Pediatrics - [address] [phone] Shea Freitas MD Faxed Refill Social History Tobacco Use Types Packs/Day Years Used Date Smoking Tobacco: Never Smokeless Tobacco: Never Alcohol Use Standard Drinks/Week Comments Yes 0 (1 standard drink = 0.6 oz pur e alcohol) 8, occ wine cooler Sex Assigned at Date Recorded Not on file documented as of this encounter Miscellaneous Notes * Telephone Encounter - Brenda Blackman - 11/11/2016 10:06 AM EDT Patient would like script to be: E-PRESCRIBED/FAXED TO PHARMACY WHEN WAS THE PATIENT'S LAST APPOINTMENT IN ADULT MEDICINE? [id number] WHEN WAS THE LAST TIME THE PATIENT SAW THEIR PCP? Same as above Does patient have an upcoming appointment? no (THE MEDICATION REQUESTED IS ON THE MED LIST ABOVE) All of the medications requested were on the CURRENT MEDS list Did you check the Pharmacy information above?: YES Patient wants: 90 -day supply Is this a mail order prescription request ? NO Patients current insurance carrier is: Payor: MEDICARE-Definition 6 / Plan: MEDICARE-Definition 6 / Product Type: MEDICARE [id number] documented in this encounter Plan of Treatment Not on file documented as of this encounter Visit Diagnoses Not on filedocumented in this encounter Care Teams Data Migration Consultant Relationship Specialty Start Date End Date Shea Freitas MD PCP - General Internal Medicine 01/24/14 03/13/17 [facility] PCP - General Internal Medicine 03/14/17 documented as of this encounter
--- OUTSIDE RECORDS SUMMARY | 2024-04-16 18:37 | XMS_ITS | Encounter Summary ---
Author Organization [facility] Address [address] [place] [address] Care Team Providers Care Head Of Music Name Role Phone Ranjit Ro MD Primary Care Provider Unavail able Shea Freitas MD Primary Care Provider Rosie blancas [facility], Pcp Primary Care Provider Unavailabl e Encounter Details Date Type Department Care Team Description 03/22/2010 Day Camp Counselor Report Medical Records [address] [place] [address] Ludin, Fred Social History Tobacco Use Types [...] on filedocumented in this encounter Care Teams Head Of Music Relationship Specialty Start Date End Date Ranjit Ro MD PCP - General 07/20/01 01/23/14 Shea Freitas MD PCP - General Internal Medicine 01/24/14 03/13/17 [facility], Pcp PCP - General Internal Medicine 03/14/17 documented as of this encounter
--- OUTSIDE RECORDS SUMMARY | 2024-04-16 18:37 | XMS_ITS | Encounter Summary ---
Author Organization [facility] Address [address] [place] [address] Care Team Providers Care Automat Car Attendant Name Role Phone Ranjit Ro MD Primary Care Provider Unavail able Shea Freitas MD Primary Care Provider Yolandava magalis [facility], Pcp Primary Care Provider Unavailabl e Encounter Details Date Type Department Care Team Description 04/14/2008 Hospital Medical Records [address] [place] [id number] Mehran Sin Social History Tobacco Use Types Packs/Day Years [...] on filedocumented in this encounter Care Teams Automat Car Attendant Relationship Specialty Start Date End Date Ranjit Ro MD PCP - General 07/20/01 01/23/14 Shea Freitas MD PCP - General Internal Medicine 01/24/14 03/13/17 Melony Tamez PCP - General Internal Medicine 03/14/17 documented as of this encounter
--- OUTSIDE RECORDS SUMMARY | 2024-04-16 18:37 | XMS_ITS | Encounter Summary ---
Author Organization [facility] [employer] [facility] Address [address] [place] [address] Care Team Providers Care Sheriff'S Sergeant Name Role Phone Ranjit Ro MD Primary Care Provider Unavail able Shea Freitas MD Primary Care Provider Rosie blancas [facility], Pcp Primary Care Provider Unavailabl e Encounter Details Date Type Department Care Team Description 03/07/2011 Oyster Washer Report Medical Records [address] [place] [id number] Mehran Vaca Social History Tobacco Use Types [...] on filedocumented in this encounter Care Teams Sheriff'S Sergeant Relationship Specialty Start Date End Date Ranjit Ro MD PCP - General 07/20/01 01/23/14 Shea Freitas MD PCP - General Internal Medicine 01/24/14 03/13/17 Dashawn, Melony PCP - General Internal Medicine 03/14/17 documented as of this encounter
--- OUTSIDE RECORDS SUMMARY | 2024-04-16 18:37 | XMS_ITS | Encounter Summary ---
Author Organization [facility] Address [address] [place] [address] Care Team Providers Care Dairy Grazer Name Role Phone Shea Freitas MD Primary Care Provider Rosie blancas [facility], Pcp Primary Care Provider Unavailabl e Encounter Details Date Type Department Care Team Description 09/01/2014 Orders Only Medicine/Pediatrics - [address] [phone] Edu Ma PA-C Social History Tobacco Use Types Packs/Day Years [...] on filedocumented in this encounter Care Teams Dairy Grazer Relationship Specialty Start Date End Date Shea Freitas MD PCP - General Internal Medicine 01/24/14 03/13/17 Dashawn, Pcp PCP - General Internal Medicine 03/14/17 documented as of this encounter
--- OUTSIDE RECORDS SUMMARY | 2024-04-16 18:37 | XMS_ITS | Encounter Summary ---
Author Organization [employer] [facility] Address [address] [place] [address] Care Team Providers Care Quality Assurance Coach Name Role Phone Shea Freitas MD Primary Care Provider Unava magalis [facility], Pcp Primary Care Provider Unavailabl e Encounter Details Date Type Department Care Team Description 10/23/2014 MACHINE TAPER/[place] Report Medical Records [address] [place] [address] Abstract, Provider Social History Tobacco Use Types [...] on filedocumented in this encounter Care Teams Quality Assurance Coach Relationship Specialty Start Date End Date hSea Freitas MD PCP - General Internal Medicine 01/24/14 03/13/17 [facility], Pcp PCP - General Internal Medicine 03/14/17 documented as of this encounter
--- OUTSIDE RECORDS SUMMARY | 2024-04-16 18:37 | XMS_ITS | Encounter Summary ---
Author Organization [facility] Address [address] [place] [address] Care Team Providers Care Knitting Machine Mechanic Name Role Phone Shea Freitas MD Primary Care Provider Rosie Tamez, Pcp Primary Care Provider Unavailabl e Reason for Visit * Reason Comments E-prescribe Rx Request Encounter Details Date Type Department Care Team Description 11/22/2014 Refill Physiatry - [place] [address] [place] [id number] Kelvin Tran DO E-prescribe Rx Request Social History Tobacco Use Types Packs/Day Years Used Date Smoking Tobacco: Never Smokeless Tobacco: Never Alcohol Use Standard Drinks/Week Comments No 0 (1 standard drink = 0.6 oz pur e alcohol) Sex Assigned at Date Recorded Not on file documented as of this encounter Miscellaneous Notes * Telephone Encounter - Essie Miller M.A. - 11/24/2014 8:28 AM EDT Last Office visit 08/18/14 Last refill 09/24/14 documented in this encounter Plan of Treatment Not on file documented as of this encounter Visit Diagnoses Not on filedocumented in this encounter Care Teams Knitting Machine Mechanic Relationship Specialty Start Date End Date Shea Freitas MD PCP - General Internal Medicine 01/24/14 03/13/17 [facility], Pcp PCP - General Internal Medicine 03/14/17 documented as of this encounter
--- OUTSIDE RECORDS SUMMARY | 2024-04-16 18:37 | XMS_ITS | Encounter Summary ---
[facility] Address [address] [place] [address] Care Team Providers Care Heavy Equipment Operator/Paver Name Role Phone Ranjit Ro MD Primary Care Provider Unavail able Shea Freitas MD Primary Care Provider Rosie blancas [facility], Pcp Primary Care Provider Unavailabl e Encounter Details Date Type Department Care Team Description 05/26/2010 Solid Waste Technician Report Medical Records [address] [place] [address] William Hayden V Social History Tobacco Use Types Packs/Day Years Used Date Smoking Tobacco: Never Alcohol Use Standard Drinks/Week Comments No 0 (1 standard drink = 0.6 oz pur e alcohol) Sex Assigned at Date Recorded Not on file documented as of this encounter Plan of Treatment Not on file documented as of this encounter Visit Diagnoses Not on filedocumented in this encounter Care Teams Heavy Equipment Operator/Paver Relationship Specialty Start Date End Date Ranjit Ro MD PCP - General 07/20/01 01/23/14 Shea Freitas MD PCP - General Internal Medicine 01/24/14 03/13/17 [facility], Pcp PCP - General Internal Medicine 03/14/17 documented as of this encounter
--- OUTSIDE RECORDS SUMMARY | 2024-04-16 18:37 | XMS_ITS | Encounter Summary ---
Author Organization [facility] Address [address] [place] [address] Care Team Providers Care Machinery Repair Maintenance Supervisor Name Role Phone [facility], Pcp Primary Care Provider Unavailabl e Reason for Visit * Reason Comments E-prescribe Rx Request Encounter Details Date Type Department Care Team Description 04/14/2017 Refill Physiatry - [place] [address] [place] [address] Kelvin Tran DO E-prescribe Rx Request Social History Tobacco Use Types Packs/Day Years Used Date Smoking Tobacco: Never Smokeless Tobacco: Never Alcohol Use Standard Drinks/Week Comments Yes 0 (1 standard drink = 0.6 oz pur e alcohol) 8, occ wine cooler Sex Assigned at Date Recorded Not on file documented as of this encounter Miscellaneous Notes * Telephone Encounter - Christine Knowles - 04/14/2017 2:35 PM EST Patient is dismissed - the pharmacy is aware documented in this encounter Plan of Treatment Not on file documented as of this encounter Visit Diagnoses Not on filedocumented in this encounter Care Teams Machinery Repair Maintenance Supervisor Relationship Specialty Start Date End Date Community, Pcp PCP - General Internal Medicine 03/14/17 documented as of this encounter
--- OUTSIDE RECORDS SUMMARY | 2024-04-16 18:37 | XMS_ITS | Encounter Summary ---
[facility] Address [address] [place] [address] Care Team Providers Care Mud Cleaner Operator Name Role Phone Ranjit Ro MD Primary Care Provider Unavail able Shea Freitas MD Primary Care Provider Yolandava magalis [facility], Pcp Primary Care Provider Unavailabl e Encounter Details Date Type Department Care Team Description 03/15/2010 Retail Greeter Report Medical Records [address] [place] [address] Mehran Vaca Social History Tobacco Use Types [...] on filedocumented in this encounter Care Teams Mud Cleaner Operator Relationship Specialty Start Date End Date Ranjit Ro MD PCP - General 07/20/01 01/23/14 Shea Freitas MD PCP - General Internal Medicine 01/24/14 03/13/17 [facility], Pcp PCP - General Internal Medicine 03/14/17 documented as of this encounter
--- OUTSIDE RECORDS SUMMARY | 2024-04-16 18:37 | XMS_ITS | Encounter Summary ---
[facility] Address [address] [place] [address] Care Team Providers Care Clip Wrapper Name Role Phone Ranjit Ro MD Primary Care Provider Unavail able Shea Freitas MD Primary Care Provider Rosie blancas [facility], Pcp Primary Care Provider Unavailabl e Encounter Details Date Type Department Care Team Description 05/26/2010 Want Ad Supervisor Report Medical Records [address] [place] [address] [facility] [address] Social History Tobacco Use Types Packs/Day Years Used Date Smoking Tobacco: Never Alcohol Use Standard Drinks/Week Comments No 0 (1 standard drink = 0.6 oz pur e alcohol) Sex Assigned at Date Recorded Not on file documented as of this encounter Plan of Treatment Not on file documented as of this encounter Visit Diagnoses Not on filedocumented in this encounter Care Teams Clip Wrapper Relationship Specialty Start Date End Date Ranjit Ro MD PCP - General 07/20/01 01/23/14 Shea Freitas MD PCP - General Internal Medicine 01/24/14 03/13/17 Melony Tamez PCP - General Internal Medicine 03/14/17 documented as of this encounter
== END 2024-04-16 15:27 | disposition home or self-care (01) ==
PROVIDERS: Visit Provider Internal Medicine
DX: M25.562 Pain in left knee (principal); E66.01 Morbid (severe) obesity due to excess calories; Z68.41 Body mass index [BMI] 40.0-44.9, adult; F33.0 Major depressive disorder, recurrent, mild; I89.0 Lymphedema, not elsewhere classified; G47.10 Hypersomnia, unspecified

== ENCOUNTER → 2024-04-16 14:41 | Outpatient (BNVA) | payer OTHER, SELFPAY | PROVIDERS: Visit Provider Internal Medicine | DX: M25.562 Pain in left knee (principal); I89.0 Lymphedema, not elsewhere classified; G47.10 Hypersomnia, unspecified; E66.01 Morbid (severe) obesity due to excess calories; Z68.41 Body mass index [BMI] 40.0-44.9, adult; Z71.3 Dietary counseling and surveillance; F33.0 Major depressive disorder, recurrent, mild | CPT/HCPCS: 96127; 99212 ==

== ENCOUNTER 2024-04-18 15:13 | Outpatient (AMB) | payer OTHER, SELFPAY ==
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
== END 2024-04-18 15:59 | disposition home or self-care (01) ==
PROVIDERS: PCP Internal Medicine; Visit Provider Physician Assistant Surgical
DX: I83.11 Varicose veins of right lower extremity with inflammation (principal); I83.12 Varicose veins of left lower extremity with inflammation
CPT/HCPCS: 99204

== ENCOUNTER → 2024-04-18 15:13 | Outpatient (BNVA) | payer OTHER, SELFPAY | PROVIDERS: PCP Internal Medicine; Visit Provider Physician Assistant Surgical | DX: I83.11 Varicose veins of right lower extremity with inflammation (principal); I83.12 Varicose veins of left lower extremity with inflammation | CPT/HCPCS: 99202 ==

== ENCOUNTER 2024-06-10 15:09 | Outpatient (AMB) | payer OTHER, SELFPAY ==
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
[2024-06-10 15:19] VITALS: BP 121/70; PULSE 73; O2SAT 100; BMI 42.4
--- OUTSIDE RECORDS SUMMARY | 2024-06-10 17:58 | XMS_ITS | Encounter Summary ---
Author Organization [facility] Address [address] [place] [address] Care Team Providers Care Stone Polisher Name Role Phone Ranjit Ro MD Primary Care Provider Unavail able Shea Freitas MD Primary Care Provider Rosie blancas [facility], Pcp Primary Care Provider Unavailabl e Encounter Details Date Type Department Care Team Description 10/16/2009 Hospital Medical Records [address] [place] [address] Lud[place], Fred Social History Tobacco Use Types [...] on filedocumented in this encounter Care Teams Stone Polisher Relationship Specialty Start Date End Date Ranjit Ro MD PCP - General 07/20/01 01/23/14 Shea Freitas MD PCP - General Internal Medicine 01/24/14 03/13/17 Melony Tamez PCP - General Internal Medicine 03/14/17 documented as of this encounter
--- OUTSIDE RECORDS SUMMARY | 2024-06-10 17:58 | XMS_ITS | Encounter Summary ---
Author Organization [facility] Address [address] [place] [address] Care Team Providers Care Doctor Of Optometry Name Role Phone Shea Freitas MD Primary Care Provider [facility], Pcp Primary Care Provider Unavailabl e Reason for Visit * Reason Onset Date Comments Medication 03/02/2016 Encounter Details Date Type Department Care Team Description 03/02/2016 Telephone Gastroenterology - [address] [address] Stephan Morton MD Medication Social History Tobacco [...] on filedocumented in this encounter Care Teams Doctor Of Optometry Relationship Specialty Start Date End Date Shea Freitas MD PCP - General Internal Medicine 01/24/14 [facility] 03/14/17 documented as of this encounter
--- OUTSIDE RECORDS SUMMARY | 2024-06-10 17:58 | XMS_ITS | Encounter Summary ---
Author Organization [facility] Address [address] [place] [address] Care Team Providers Care Snuff Grinder Name Role Phone Shea Freitas MD Primary Care Provider Rosie blancas [facility], Pcp Primary Care Provider Unavailabl e Reason for Visit * Reason Comments E-prescribe Rx Request Encounter Details Date Type Department Care Team Description 07/07/2015 Refill Physiatry - [address] [address] Kelvin Tran DO E-prescribe Rx Request Social [...] Telephone Encounter - Essie Miller M.A. - 07/07/2015 8:11 AM EDT Last appointment 03/06/15 Last script 05/13/15 No future visit scheduled documented in this encounter Plan of Treatment Not on file documented as of this encounter Visit Diagnoses Not on filedocumented in this encounter Care Teams Snuff Grinder Relationship Specialty Start Date End Date Shea Freitas MD PCP - General Internal Medicine 01/24/14 03/13/17 [facility], Pcp PCP - General Internal Medicine 03/14/17 documented as of this encounter
--- OUTSIDE RECORDS SUMMARY | 2024-06-10 17:58 | XMS_ITS | Encounter Summary ---
Author Organization [facility] Address [address] [place] [address] Care Team Providers Care Airport Electrician Name Role Phone Ranjit Ro MD Primary Care Provider Unavail able Grzegorz Gibson MD Primary Care Provider Unavail able Kylah Osullivan Primary Care Provider [phone] Hannah Pope Primary Care Provider [phone] Doris Aguilera Primary Care Provider Unavail able Shea Freitas MD Primary Care Provider [facility], Pcp Primary Care Provider Unavailabl e Encounter Details Date Type Department Care Team Description 11/13/1956 Sponge Press Operator Report Medical Records [address] [place] [address] [facility], Fred Social History Tobacco Use Types Packs/Day Years Used Date Smoking Tobacco: Never Assessed Sex Assigned at Date Recorded Not on file documented as of this encounter Plan of Treatment Not on file documented as of this encounter Visit Diagnoses Not on filedocumented in this encounter Care Teams Airport Electrician Relationship Specialty Start Date End Date Ranjit Ro MD PCP - General 07/20/01 01/23/14 Grzegorz Gibson MD PCP - General 03/20/01 07/19/[address] [address] PCP - General 08/09/00 03/19/01 Hannah Pope [address] [place] [address] PCP - General 06/07/1997 08/08/00 Doris Aguilera PCP - General 11/08/1991 06/06/1997 Shea Freitas MD PCP - General Internal Medicine 01/24/14 03/13/17 [facility], Pcp PCP - General Internal Medicine 03/14/17 documented as of this encounter
--- OUTSIDE RECORDS SUMMARY | 2024-06-10 17:58 | XMS_ITS | Encounter Summary ---
Author Organization [facility] Address [address] [place] [address] Care Team Providers Care Chemical Instrumentation Officer Name Role Phone Ranjit Ro MD Primary Care Provider Unavail able Shea Freitas MD Primary Care Provider Rosie blancas [facility], Pcp Primary Care Provider Unavailabl e Encounter Details Date Type Department Care Team Description 10/28/2009 Accounts Payable Bookkeeper Report Medical Records [address] [place] [address] Ludin, Fred Social History Tobacco Use Types [...] on filedocumented in this encounter Care Teams Chemical Instrumentation Officer Relationship Specialty Start Date End Date Ranjit Ro MD PCP - General 07/20/01 01/23/14 Shea Freitas MD PCP - General Internal Medicine 01/24/14 03/13/17 [facility], Pcp PCP - General Internal Medicine 03/14/17 documented as of this encounter
--- OUTSIDE RECORDS SUMMARY | 2024-06-10 17:58 | XMS_ITS | Encounter Summary ---
[facility] Address [address] [place] [address] Care Team Providers Care Wallpaperer Name Role Phone Shea Freitas MD Primary Care Provider Rosie blancas [facility], Pcp Primary Care Provider Unavailabl e Encounter Details Date Type Department Care Team Description 07/09/2015 Manager Event Report Medical Records [address] [place] [address] Abstract, Provider Social History Tobacco Use Types [...] on filedocumented in this encounter Care Teams Wallpaperer Relationship Specialty Start Date End Date Shea Freitas MD PCP - General Internal Medicine 01/24/14 03/13/17 [facility], Pcp PCP - General Internal Medicine 03/14/17 documented as of this encounter
--- OUTSIDE RECORDS SUMMARY | 2024-06-10 17:59 | XMS_ITS | Encounter Summary ---
[facility] Organization [facility] Address [address] [place] [address] Care Team Providers Care Music Minister Name Role Phone Ranjit Ro MD Primary Care Provider Unavail able Shea Puga MD Primary Care Provider Rosie blancas [facility], Pcp Primary Care Provider Unavailabl e Encounter Details Date Type Department Care Team Description 12/11/2009 Release of Information Medical Records [address] [place] [address] Abstract, Provider Social History Tobacco Use Types [...] PM Rec'd request from [facility]. Sent to [facility]. documented in this encounter Plan of Treatment Not on file documented as of this encounter Visit Diagnoses Not on filedocumented in this encounter Care Teams Music Minister Relationship Specialty Start Date End Date Ranjit Ro MD PCP - General 07/20/01 01/23/14 Shea Puga MD PCP - General Internal Medicine 01/24/14 03/13/17 [facility], Pcp PCP - General Internal Medicine 03/14/17 documented as of this encounter
--- OUTSIDE RECORDS SUMMARY | 2024-06-10 17:59 | XMS_ITS | Encounter Summary ---
[facility] Address [address] [place] [address] Care Team Providers Care Telephone Lines Repairer Name Role Phone Shea Freitas MD Primary Care Provider Rosie blancas [facility], Pcp Primary Care Provider Unavailabl e Encounter Details Date Type Department Care Team Description 05/24/2016 Wellness Visit Medical Records [address] [place] [address] Shea Freitas MD Social History Tobacco Use Types Packs/Day [...] on filedocumented in this encounter Care Teams Telephone Lines Repairer Relationship Specialty Start Date End Date Shea Freitas MD PCP - General Internal Medicine 01/24/14 03/13/17 [facility], Pcp PCP - General Internal Medicine 03/14/17 documented as of this encounter
--- OUTSIDE RECORDS SUMMARY | 2024-06-10 17:59 | XMS_ITS | Encounter Summary ---
Author Organization [facility] Address [address] [place] [address] Care Team Providers Care Hadoop Admin Name Role Phone Ranjit Ro MD Primary Care Provider Unavail able Shea Freitas MD Primary Care Provider [facility], Pcp Primary Care Provider Unavailabl e Encounter Details Date Type Department Care Team Description 05/26/2010 Heel Molder Report Medical Records [address] [place] [id number] [address] [address] Social History Tobacco Use Types Packs/Day Years Used Date Smoking Tobacco: Never Alcohol Use Standard Drinks/Week Comments No 0 (1 standard drink = 0.6 oz pur e alcohol) Sex Assigned at Date Recorded Not on file documented as of this encounter Plan of Treatment Not on file documented as of this encounter Visit Diagnoses Not on filedocumented in this encounter Care Teams Hadoop Admin Relationship Specialty Start Date End Date Ranjit Ro MD PCP - General 07/20/01 01/23/14 Shea Freitas MD PCP - General Internal Medicine 01/24/14 03/13/17 Melony Tamez PCP - General Internal Medicine 03/14/17 documented as of this encounter
--- OUTSIDE RECORDS SUMMARY | 2024-06-10 17:59 | XMS_ITS | Encounter Summary ---
Author Organization [facility] Address [address] [place] [address] Care Team Providers Care Inverted Block Operator Name Role Phone Shea Freitas MD Primary Care Provider [facility], Pcp Primary Care Provider Unavailabl e Reason for Visit * Reason Onset Date Comments refill request 06/27/2014 Encounter Details Date Type Department Care Team Description 06/27/2014 Telephone Medicine/Pediatrics - [address] [phone] Shea Freitas MD refill request Social History Tobacco Use Types Packs/Day Years Used Date Smoking Tobacco: Never Smokeless Tobacco: Never Alcohol Use Standard Drinks/Week Comments No 0 (1 standard drink = 0.6 oz pur e alcohol) Sex Assigned at Date Recorded Not on file documented as of this encounter Miscellaneous Notes * Telephone Encounter - Caroline Vargas Rn - 06/27/2014 4:22 PM EDT Spoke to pt . Taking medication, thinks she has sciatica, Pt asking for refill on prednisone,and pain med, appt booked in u/c for evaluation of the pain * Telephone Encounter - Barbara Calderon - 06/27/2014 3:59 PM EDT Patient wants nurse to call her please. She was advised this refill may not be ready today if approved by provider Patient would like script to be: PLACED IN PATIENT INSTRUCTOR BRIDGE WHEN WAS THE PATIENT'S LAST APPOINTMENT IN ADULT MEDICINE? 06/13/14 WHEN WAS THE LAST TIME THE PATIENT SAW THEIR PCP? Does patient have an upcoming appointment? (THE MEDICATION REQUESTED IS ON THE MED LIST ABOVE) All of the medications requested were on the CURRENT MEDS list Did you check the Pharmacy information above?: NO Patient wants: 30 -day supply Is this a mail order prescription request ? NO Patients current insurance carrier is: [place] / Plan: MEDICARE-[employer] Cred / Product Type: MEDICARE [id number] documented in this encounter Plan of Treatment Not on file documented as of this encounter Visit Diagnoses Not on filedocumented in this encounter Care Teams Inverted Block Operator Relationship Specialty Start Date End Date Shea Freitas MD PCP - General Internal Medicine 01/24/14 03/13/17 Melony Tamez PCP - General Internal Medicine 03/14/17 documented as of this encounter
--- OUTSIDE RECORDS SUMMARY | 2024-06-10 17:59 | XMS_ITS | Encounter Summary ---
Author Organization [facility] Address [address] [place] [address] Care Team Providers Care Welder Metal Fab Name Role Phone Shea Freitas MD Primary Care Provider [facility], Pcp Primary Care Provider Unavailabl e Reason for Visit * Reason Onset Date Comments Faxed Refill 11/11/2016 Encounter Details Date Type Department Care Team Description 11/11/2016 Refill Medicine/Pediatrics - [address] [phone] Shea Freitas MD Faxed Refill Social History [...] THE PATIENT'S LAST APPOINTMENT IN ADULT MEDICINE? [id number] WHEN WAS THE LAST TIME THE PATIENT [...] NO Patients current insurance carrier is: Payor: MEDICARE-[place] / Plan: MEDICARE-[employer] / Product Type: MEDICARE [id number] documented in this encounter Plan of Treatment Not on file documented as of this encounter Visit Diagnoses Not on filedocumented in this encounter Care Teams Welder Metal Fab Relationship Specialty Start Date End Date Shea Freitas MD PCP - General Internal Medicine 01/24/14 03/13/17 [facility] PCP - General Internal Medicine 03/14/17 documented as of this encounter
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
--- OUTSIDE RECORDS SUMMARY | 2024-06-10 17:59 | XMS_ITS | Encounter Summary ---
Author Organization [facility] Address [address] [place] [address] Care Team Providers Care Quality Compliance Coordinator Name Role Phone Ranjit Ro MD Primary Care Provider Unavail able Shea Freitas MD Primary Care Provider Rosie blancas [facility], Pcp Primary Care Provider Unavailabl e Encounter Details Date Type Department Care Team Description 08/15/2013 Business Doc Medical Records [address] [place] [address] Abstract, Provider Social History Tobacco Use Types [...] filedocumented in this encounter Care Teams Quality Compliance Coordinator Relationship Specialty Start Date End Date Ranjit Ro MD PCP - General 07/20/01 01/23/14 Shea Freitas MD PCP - General Internal Medicine 01/24/14 03/13/17 Dashawn, Melony PCP - General Internal Medicine 03/14/17 documented as of this encounter
--- OUTSIDE RECORDS SUMMARY | 2024-06-10 17:59 | XMS_ITS | Encounter Summary ---
Author Organization [facility] Address [address] [place] [address] Care Team Providers Care Manager Air Name Role Phone Ranjit Ro MD Primary Care Provider Unavail able Shea Freitas MD Primary Care Provider Rosie blancas [facility], Pcp Primary Care Provider Unavailabl e Encounter Details Date Type Department Care Team Description 12/04/2009 Hospital Medical Records [address] [place] [address] Ludin, Fred Social History Tobacco Use Types [...] on filedocumented in this encounter Care Teams Manager Air Relationship Specialty Start Date End Date Ranjit Ro MD PCP - General 07/20/01 01/23/14 Shea Freitas MD PCP - General Internal Medicine 01/24/14 03/13/17 Melony Tamez PCP - General Internal Medicine 03/14/17 documented as of this encounter
--- OUTSIDE RECORDS SUMMARY | 2024-06-10 17:59 | XMS_ITS | Encounter Summary ---
Author Organization [facility] Address [address] [place] [address] Care Team Providers Care Customer Service Receptionist Name Role Phone Ranjit Ro MD Primary Care Provider Unavail able Shea Freitas MD Primary Care Provider Rosie blancas [facility], Pcp Primary Care Provider Unavailabl e Encounter Details Date Type Department Care Team Description 10/23/2007 Hospital Medical Records [address] [place] [address] Mehran Vaca Social History Tobacco Use Types [...] filedocumented in this encounter Care Teams Customer Service Receptionist Relationship Specialty Start Date End Date Ranjit Ro MD PCP - General 07/20/01 01/23/14 Shea Freitas MD PCP - General Internal Medicine 01/24/14 03/13/17 Melony Tamez PCP - General Internal Medicine 03/14/17 documented as of this encounter
--- OUTSIDE RECORDS SUMMARY | 2024-06-10 17:59 | XMS_ITS | Encounter Summary ---
Author Organization [facility] Address [address] [place] [address] Care Team Providers Care Pastry Baker Name Role Phone Ranjit Ro MD Primary Care Provider Unavail able Shea Freitas MD Primary Care Provider Rosie blancas [facility], Pcp Primary Care Provider Unavailabl e Encounter Details Date Type Department Care Team Description 05/26/2010 Home Security Professional Report Medical Records [address] [place] [address] Ludin, Fred Social History Tobacco Use Types [...] on filedocumented in this encounter Care Teams Pastry Baker Relationship Specialty Start Date End Date Ranjit Ro MD PCP - General 07/20/01 01/23/14 Shea Freitas MD PCP - General Internal Medicine 01/24/14 03/13/17 [facility], Pcp PCP - General Internal Medicine 03/14/17 documented as of this encounter
--- OUTSIDE RECORDS SUMMARY | 2024-06-10 17:59 | XMS_ITS | Encounter Summary ---
Author Organization [facility] Address [address] [place] [address] Care Team Providers Care Structures Technician Name Role Phone Ranjit Ro MD Primary Care Provider Unavail able Shea Freitas MD Primary Care Provider Yolandava magalis [facility], Pcp Primary Care Provider Unavailabl e Encounter Details Date Type Department Care Team Description 01/11/2010 [employer] Developer Report Medical Records [address] [place] [address] Mehran Vaca Social History Tobacco Use Types [...] on filedocumented in this encounter Care Teams Structures Technician Relationship Specialty Start Date End Date Ranjit Ro MD PCP - General 07/20/01 01/23/14 Shea Freitas MD PCP - General Internal Medicine 01/24/14 03/13/17 [facility], Pcp PCP - General Internal Medicine 03/14/17 documented as of this encounter
--- OUTSIDE RECORDS SUMMARY | 2024-06-10 17:59 | XMS_ITS | Encounter Summary ---
Author Organization [facility] Address [address] [place] [address] Care Team Providers Care Rehabilitation Physician Name Role Phone Ranjit Ro MD Primary Care Provider Unavail able Shea Freitas MD Primary Care Provider Rosie blancas [facility], Pcp Primary Care Provider Unavailabl e Encounter Details Date Type Department Care Team Description 03/07/2011 Market Research Consultant Report Medical Records [address] [place] [address] Mehran Vaca Social History Tobacco Use Types [...] on filedocumented in this encounter Care Teams Rehabilitation Physician Relationship Specialty Start Date End Date Ranjit Ro MD PCP - General 07/20/01 01/23/14 Shea Freitas MD PCP - General Internal Medicine 01/24/14 03/13/17 Dashawn, Melony PCP - General Internal Medicine 03/14/17 documented as of this encounter
--- OUTSIDE RECORDS SUMMARY | 2024-06-10 17:59 | XMS_ITS | Encounter Summary ---
Author Organization [facility] Address [address] [place] [address] Care Team Providers Care Chaplain Name Role Phone Shea Freitas MD Primary Care Provider Rosie blancas [facility], Pcp Primary Care Provider Unavailabl e Encounter Details Date Type Department Care Team Description 01/31/2017 Transfer Records Medical Records [address] [place] [id number] [place] [address] Social History Tobacco Use Types Packs/Day Years [...] on filedocumented in this encounter Care Teams Chaplain Relationship Specialty Start Date End Date Shea Freitas MD PCP - General Internal Medicine 01/24/14 03/13/17 [facility], Pcp PCP - General Internal Medicine 03/14/17 documented as of this encounter
--- OUTSIDE RECORDS SUMMARY | 2024-06-10 17:59 | XMS_ITS | Encounter Summary ---
[facility] Address [address] [place] [address] Care Team Providers Care Through Operator Name Role Phone Ranjit Ro MD Primary Care Provider Unavail able Shea Freitas MD Primary Care Provider Rosie blancas [facility], Pcp Primary Care Provider Unavailabl e Encounter Details Date Type Department Care Team Description 07/06/2011 Hydrologist Report Medical Records [address] [place] [address] [facility] [address] Social History Tobacco Use Types Packs/Day Years [...] on filedocumented in this encounter Care Teams Through Operator Relationship Specialty Start Date End Date Ranjit Ro MD PCP - General 07/20/01 01/23/14 Shea Freitas MD PCP - General Internal Medicine 01/24/14 03/13/17 Melony Tamez PCP - General Internal Medicine 03/14/17 documented as of this encounter
--- OUTSIDE RECORDS SUMMARY | 2024-06-10 17:59 | XMS_ITS | Encounter Summary ---
[facility] Address [address] [place] [address] Care Team Providers Care Cemetery Worker Name Role Phone Ranjit Ro MD Primary Care Provider Unavail able Shea Freitas MD Primary Care Provider Yolandava magalis [facility], Pcp Primary Care Provider Unavailabl e Encounter Details Date Type Department Care Team Description 05/15/2008 Hospital Medical Records [address] [place] [address] Mehran Sin Social History Tobacco Use Types [...] on filedocumented in this encounter Care Teams Cemetery Worker Relationship Specialty Start Date End Date Ranjit Ro MD PCP - General 07/20/01 01/23/14 Shea Freitas MD PCP - General Internal Medicine 01/24/14 03/13/17 Melony Tamez PCP - General Internal Medicine 03/14/17 documented as of this encounter
--- OUTSIDE RECORDS SUMMARY | 2024-06-10 17:59 | XMS_ITS | Encounter Summary ---
[facility] Organization [facility] Address [address] [place] [address] Care Team Providers Care Signalling And Communications Engineer Name Role Phone Shea Freitas MD Primary Care Provider [facility], Pcp Primary Care Provider Unavailabl e Encounter Details Date Type Department Care Team Description 10/19/2016 Orders Only Medicine/Pediatrics - [address] [phone] Shea Freitas MD Unspecified vitamin D deficiency [...] - 80 ng/ml 11/29/2016 2:47 PM EDT [facility] Comment: Vitamin D Reference Ranges ??Deficiency: ? <20 ng/mL ??Insufficiency: ?20-29 ng/mL ??Optimal: ?30-80 ng/mL ??High: ? >80 ng/mL 11/29/2016 10:2 9 AM EDT 11/29/2016 10:29 AM EDT Shea Freitas MD LAB Performing Organization Address City/State/[facility] Co de Phone Number [address] documented in this encounter Visit Diagnoses Diagnosis Unspecified vitamin D deficiency- Primary Hypocalcemia documented in this encounter Care Teams Signalling And Communications Engineer Relationship Specialty Start Date End Date Shea Freitas MD PCP - General Internal Medicine 01/24/14 03/13/17 [facility] PCP - General Internal Medicine 03/14/17 documented as of this encounter
--- OUTSIDE RECORDS SUMMARY | 2024-06-10 17:59 | XMS_ITS | Encounter Summary ---
Author Organization [facility] Address [address] [place] [address] Care Team Providers Care Retail Security Professional Name Role Phone Shea Freitas MD Primary Care Provider [facility], Pcp Primary Care Provider Unavailabl e Reason for Visit * Reason Onset Date Comments other 02/17/2017 Encounter Details Date Type Department Care Team Description 02/17/2017 Telephone Medicine/Pediatrics - [address] [phone] Shea Freitas MD other Social History Tobacco Use Types Packs/Day Years Used Date Smoking Tobacco: Never Smokeless Tobacco: Never Alcohol Use Standard Drinks/Week Comments Yes 0 (1 standard drink = 0.6 oz pur e alcohol) 8, occ wine cooler Sex Assigned at Date Recorded Not on file documented as of this encounter Miscellaneous Notes * Telephone Encounter - Vonnie Willis - 02/17/2017 8:07 AM EST I will send original via interoffice to patient services-Kesha * Telephone Encounter - Vonnie Willis - 02/17/2017 8:04 AM EST FYI to Dr. Freitas/patient services Received the receipt for a certified letter that was signed on 02/04/[address] patient[address] I will place original at front retail center receptionist. documented in this encounter Plan of Treatment Not on file documented as of this encounter Visit Diagnoses Not on filedocumented in this encounter Care Teams Retail Security Professional Relationship Specialty Start Date End Date Shea Freitas MD PCP - General Internal Medicine 01/24/14 03/13/17 [facility], Pcp PCP - General Internal Medicine 03/14/17 documented as of this encounter
--- OUTSIDE RECORDS SUMMARY | 2024-06-10 17:59 | XMS_ITS | Encounter Summary ---
Author Organization [facility] Address [address] [place] [address] Care Team Providers Care Prop And Scenery Maker Name Role Phone Shea Freitas MD Primary Care Provider Rosie Tamez, Pcp Primary Care Provider Unavailabl e Reason for Visit * Reason Comments E-prescribe Rx Request Encounter Details Date Type Department Care Team Description 11/22/2014 Refill Physiatry - [place] [address] [place] [address] Kelvin Tran DO E-prescribe Rx Request Social [...] on filedocumented in this encounter Care Teams Prop And Scenery Maker Relationship Specialty Start Date End Date Shea Freitas MD PCP - General Internal Medicine 01/24/14 03/13/17 Dashawn, Pcp PCP - General Internal Medicine 03/14/17 documented as of this encounter
--- OUTSIDE RECORDS SUMMARY | 2024-06-10 17:59 | XMS_ITS | Encounter Summary ---
Author Organization [facility] Address [address] [place] [address] Care Team Providers Care Associate Data Scientist Name Role Phone Ranjit Ro MD Primary Care Provider Unavail able Shea Freitas MD Primary Care Provider Rosie blancas [facility], Pcp Primary Care Provider Unavailabl e Encounter Details Date Type Department Care Team Description 11/27/2009 Hospital Medical Records [address] [place] [address] Ludin, Fred Social History Tobacco Use Types [...] on filedocumented in this encounter Care Teams Associate Data Scientist Relationship Specialty Start Date End Date Ranjit Ro MD PCP - General 07/20/01 01/23/14 Shea Freitas MD PCP - General Internal Medicine 01/24/14 03/13/17 Melony Tamez PCP - General Internal Medicine 03/14/17 documented as of this encounter
--- OUTSIDE RECORDS SUMMARY | 2024-06-10 17:59 | XMS_ITS | Encounter Summary ---
Author Organization [facility] Address [address] [place] [address] Care Team Providers Care Movement Therapist Name Role Phone Shea Freitas MD Primary Care Provider Rosie blancas [facility], Pcp Primary Care Provider Unavailabl e Encounter Details Date Type Department Care Team Description 12/24/2016 Night Triage Doc Medical Records [address] [place] [phone] Abstract, Provider Social History Tobacco Use Types [...] on filedocumented in this encounter Care Teams Movement Therapist Relationship Specialty Start Date End Date Shea Freitas MD PCP - General Internal Medicine 01/24/14 03/13/17 [facility], Pcp PCP - General Internal Medicine 03/14/17 documented as of this encounter
--- OUTSIDE RECORDS SUMMARY | 2024-06-10 17:59 | XMS_ITS | Encounter Summary ---
Author Organization [facility] Address [address] [place] [address] Care Team Providers Care Director Strategic Account Management Name Role Phone Shea Freitas MD Primary Care Provider [facility], Pcp Primary Care Provider Unavailabl e Reason for Referral * EXTERNAL (Priority) - Authorized/Booked Specialty Diagnoses / Procedures Referred By Contac t Referred To Contact Plastic Surgery / Plastic surgery Procedures REFERRAL TO PLASTIC SURGERY Shea Freitas MD [address] [place] [address] Lee Cordova MD [address] [place] [address] Referral ID Status Reason Start Date Expiration Date V isits Requested Visits Authorized SEE NOTE Authorized/B ooked 05/19/2016 2016 1 1 Reason for Visit * Reason Onset Date Comments Lunch Counter Manager Feedback 05/19/2016 Dr Cordova Encounter Details Date Type Department Care Team Description 05/19/2016 Telephone Adult Medicine - [facility] [address] [place], [place] [phone] Shea Freitas MD Lunch Counter Manager Feedback (Dr Cordova) Social History Tobacco Use Types Packs/Day Years Used Date Smoking Tobacco: Never Smokeless Tobacco: Never Alcohol Use Standard Drinks/Week Comments Yes 0 (1 standard drink = 0.6 oz pur e alcohol) 8, occ wine cooler Sex Assigned at Date Recorded Not on file documented as of this encounter Miscellaneous Notes * Telephone Encounter - Edu Ma PA-C - 05/19/2016 12:02 PM EDT New order signed * Telephone Encounter - Cheyenne Durant - 05/19/2016 11:20 AM EDT Edu Ruiz placed an order for surgery, for flap reconstruction, this order should be for Plastic Surgery. I have pended a new order for Plastic Surgery, Dr Lee Cordova for you to sign Thank you Cheyenne documented in this encounter Plan of Treatment Not on file documented as of this encounter Visit Diagnoses Not on filedocumented in this encounter Care Teams Director Strategic Account Management Relationship Specialty Start Date End Date Shea Freitas MD PCP - General Internal Medicine 01/24/14 03/13/17 [facility], [facility] PCP - General Internal Medicine 03/14/17 documented as of this encounter
--- OUTSIDE RECORDS SUMMARY | 2024-06-10 17:59 | XMS_ITS | Encounter Summary ---
Author Organization [facility] Address [address] [place] [address] Care Team Providers Care Human Relations Professor Name Role Phone Ranjit Ro MD Primary Care Provider Unavail able Shea Freitas MD Primary Care Provider Yolandava magalis [facility], Pcp Primary Care Provider Unavailabl e Encounter Details Date Type Department Care Team Description 05/06/2011 Balance Wheel Hand Filer Report Medical Records [address] [place] [address] Mehran Sin Social History Tobacco Use Types [...] on filedocumented in this encounter Care Teams Human Relations Professor Relationship Specialty Start Date End Date Ranjit Ro MD PCP - General 07/20/01 01/23/14 Shea Freitas MD PCP - General Internal Medicine 01/24/14 03/13/17 Dashawn, Melony PCP - General Internal Medicine 03/14/17 documented as of this encounter
--- OUTSIDE RECORDS SUMMARY | 2024-06-10 17:59 | XMS_ITS | Encounter Summary ---
Author Organization [facility] Address [address] [place] [address] Care Team Providers Care Plasma Center Technician Name Role Phone Shea Freitas MD Primary Care Provider [facility], Pcp Primary Care Provider Unavailabl e Encounter Details Date Type Department Care Team Description 04/20/2016 Orders Only Medicine/Pediatrics - [address] [id number] Shea Freitas MD Acute pancreatitis, unspecified complication status, unspecified pancreatitis type (Primary Dx) Social History Tobacco Use Types Packs/Day Years Used Date Smoking Tobacco: Never Smokeless Tobacco: Never Alcohol Use Standard Drinks/Week Comments Yes 0 (1 standard drink = 0.6 oz pur e alcohol) rarely, occ wine cooler Sex Assigned at Date Recorded Not on file documented as of this encounter Plan of Treatment Not on file documented as of this encounter Results * COMPREHENSIVE METABOLIC PANEL (04/25/2016 10:27 AM EDT) GLUCOSE 84 70 - 100 mg/dL 04/25/2016 1:12 PM T [facility] Comment: Reference range applicable to fasting specimens only Based on recommendations from the ADA and AACE, the fasting glucose reference range has been changed to 70-100 mg/dL. ??This change is effective June 29, 2009 BUN 12 5 - 25 mg/dL 04/25/2016 1:12 PM EDT [facility] CREAT 0.7 0.7 - 1.5 mg/dL 04/25/2016 1:12 PM EDT [facility] BUN/CREAT RATIO 17.1 6.0 - 20.0 04/25/2016 1:12 PM EDT [facility] GFR > 60 >60 04/25/2016 1:12 PM EDT [facility] Comment: If patient is -Mongolian, multiply result by 1.21 Chronic Kidney Disease: < 60 ml/min/1.73 square meters Kidney Failure: < 15 ml/min/1.73 square meters Sodium 142 133 - 145 mEq/L 04/25/2016 1:12 PM EDT [facility] Potassium 4.3 3.5 - 5.5 mEq/L 04/25/2016 1:12 PM EDT [facility] Chloride 104 96 - 108 mEq/L 04/25/2016 1:12 PM EDT [facility] CO2 24.3 21.0 - 32.0 mEq/L 04/25/2016 1:12 PM EDT [facility] CALCIUM 8.6 8.5 - 10.5 mg/dL 04/25/2016 1:12 PM EDT [facility] TOTAL PROTEIN 6.8 6.0 - 8.3 gm/dL 04/25/2016 1:12 PM EDT [facility] Albumin 3.7 3.2 - 5.6 gm/dL 04/25/2016 1:12 PM EDT [facility] GLOBULIN 3.1 1.9 - 4.4 gm/dL 04/25/2016 1:12 PM EDT [facility] A/G RATIO 1.2 1.1 - 2.3 04/25/2016 1:12 PM EDT [facility] BILI,TOTAL 0.2 0.0 - 1.2 mg/dL 04/25/2016 1:12 PM EDT [facility] AST (SGOT) 17 10 - 42 U/L 04/25/2016 1:12 PM EDT [facility] ALT( SGPT) 19 10 - 60 U/L 04/25/2016 1:12 PM EDT [facility] ALK PHOS 116 42 - 121 U/L 04/25/2016 1:12 PM EDT [facility] 04/25/2016 10:2 7 AM EDT 04/25/2016 10:27 AM EDT Shea Freitas MD LAB Performing Organization Address [facility] Phone Number [address] * LIPASE (04/25/2016 10:27 AM EDT) LIPASE 44 13 - 60 U/L 04/25/2016 1:12 PM EDT [facility] 04/25/2016 10:2 7 AM EDT 04/25/2016 10:27 AM EDT Shea Freitas MD LAB Performing Organization Address [facility] Phone Number [address] * AMYLASE (04/25/2016 10:27 AM EDT) AMYLASE 94 0 - 100 U/L 04/25/2016 1:12 PM EDT [facility] 04/25/2016 10:2 7 AM EDT 04/25/2016 10:27 AM EDT Shea Freitas MD LAB Performing Organization Address [facility] Phone Number [address] documented in this encounter Visit Diagnoses Diagnosis Acute pancreatitis, unspecified complication status, unspecified pancreatitis type- Primary documented in this encounter Care Teams Plasma Center Technician Relationship Specialty Start Date End Date Shea Freitas MD PCP - General Internal Medicine 01/24/14 03/13/17 [facility], [facility] PCP - General Internal Medicine 03/14/17 documented as of this encounter
--- OUTSIDE RECORDS SUMMARY | 2024-06-10 17:59 | XMS_ITS | Encounter Summary ---
Author Organization [employer] [facility] Address [address] [place] [address] Care Team Providers Care Manager Of Product Name Role Phone Shea Freitas MD Primary Care Provider Rosie blancas [facility], Pcp Primary Care Provider Unavailabl e Encounter Details Date Type Department Care Team Description 06/29/2014 Night Triage Doc Medical Records [address] [place] [id number] Abstract, Provider Social History Tobacco Use Types [...] filedocumented in this encounter Care Teams Manager Of Product Relationship Specialty Start Date End Date Shea Freitas MD PCP - General Internal Medicine 01/24/14 03/13/17 [facility], Pcp PCP - General Internal Medicine 03/14/17 documented as of this encounter
--- OUTSIDE RECORDS SUMMARY | 2024-06-10 17:59 | XMS_ITS | Encounter Summary ---
Author Organization [employer] [facility] Address [address] [place] [address] Care Team Providers Care Multifocal Button Generator Name Role Phone Ranjit Ro MD Primary Care Provider Unavail able Shea Freitas MD Primary Care Provider Rosie blancas [facility], Pcp Primary Care Provider Unavailabl e Encounter Details Date Type Department Care Team Description 11/28/2009 Hospital Medical Records [address] [place] [id number] [place], Fred Social History Tobacco Use Types [...] on filedocumented in this encounter Care Teams Multifocal Button Generator Relationship Specialty Start Date End Date Ranjit Ro MD PCP - General 07/20/01 01/23/14 Shea Freitas MD PCP - General Internal Medicine 01/24/14 03/13/17 Melony Tamez PCP - General Internal Medicine 03/14/17 documented as of this encounter
== END 2024-06-10 15:27 | disposition home or self-care (01) ==
LOC: HO.PMC 15:10
PROVIDERS: PCP Internal Medicine; Visit Provider Anesthesiology
DX: M47.812 Spondylosis without myelopathy or radiculopathy, cervical region (principal); M47.814 Spondylosis without myelopathy or radiculopathy, thoracic region
CPT/HCPCS: 99213

== ENCOUNTER → 2024-06-10 15:09 | Outpatient (BNVA) | payer OTHER, SELFPAY | PROVIDERS: PCP Internal Medicine; Visit Provider Anesthesiology | DX: M47.812 Spondylosis without myelopathy or radiculopathy, cervical region (principal); M47.814 Spondylosis without myelopathy or radiculopathy, thoracic region | CPT/HCPCS: 99212 ==

== ENCOUNTER 2024-09-12 08:14 | Outpatient (RCR) | payer OTHER, SELFPAY ==
--- NOTE | 2024-07-24 13:31 | MHC.PT.EP ---
[facility] [place] Office [place] [facility] [place] Office [address] Wes Mercado [address] [phone] F: [phone] F: [phone] F: [phone] F: [phone] Physical Therapy Plan of Care Date of Evaluation: 07/18/24 Date of Surgery: N/A Diagnosis: spondylosis of thoracic spine, cervical spine (RL) Assessment: pt is a 58 y/o female presenting to physical therapy w/ referring diagnosis of spondylosis of thoracic spine, cervical spine. Impairments include pain, decreased range of motion, decreased strength, impaired functional mobility, impaired postural awareness, and altered ambulation mechanics. pt is a good candidate for skilled PT due to age, potential remediation of impairments, typical disease/condition progression and prognosis, comorbidities, and motivation. pt would benefit from skilled PT intervention to provide a tailored strengthening and stretching exercise program, functional training, gait training, postural re-training, neuromuscular re-education, modalities as needed for pain, equipment safety demonstration. Frequency and Duration: The patient will be seen 2x/wk for 4 wks Short Term Goals: pt will be I w/ HEP to promote self-management of condition. pt will improve B cervical rotation by at least 10* to promote ease in head turns for safety w/ driving. Residential Goals: pt will report a statistically significant improvement in self-reported outcome measure, NDI, to promote return to PLOF. pt will report <3/10 neck pain w/ active forward and lateral elevation of B UEs to promote return to light and heavy dietetic aide. Treatment Plan: Modalities to reduce pain, spasms and effusion. Manual therapy to restore motion and function. Therapeutic exercise to improve strength and flexibility. Neuromuscular re-education for posture and balance. Therapeutic activities to return to functional activities of daily living. Electronically signed by: Andreina Schafer PT, DPT Please sign and return to therapist. Thank you for your referral.
--- NOTE | 2024-10-07 14:33 | MHC.PT.DC ---
[facility] [place] Office [place] Office [place] Office [address] [phone] F: [phone] F: [phone] F: [phone] F: [phone] Physical Therapy Discharge Report Diagnosis: spondylosis of thoracic spine, cervical spine (RL) Date of Surgery: N/A Date of Evaluation: 07/18/24 Date of Discharge: 10/07/24 Treatments to Date: 8 Cancellations to Date: 5 No Shows to Date: 0 Discharge Status: Improved Function Independent with HEP Discharge Summary: The patient overall has been reporting minimal to no neck or shoulder pain. She has improved with her functional reaching and ability to carry light weights. She is independent with her home exercise program and is discharged from this physical therapy plan of care. Electronically signed by: Andreina Schafer PT, DPT Please sign and return to therapist. Thank you for your referral.
== END 2024-10-07 14:33 | disposition home or self-care (01) ==
LOC: HO.PT 08:14
PROVIDERS: PCP Internal Medicine; Visit Provider Anesthesiology
DX: M47.814 Spondylosis without myelopathy or radiculopathy, thoracic region (principal); M47.812 Spondylosis without myelopathy or radiculopathy, cervical region
CPT/HCPCS: 97110; 97140; 97162

== ENCOUNTER 2024-11-25 15:40 | Outpatient (AMB) | payer OTHER, SELFPAY ==
[2024-11-25 15:44] VITALS: BP 100/72; PULSE 74; RESP 18; TEMP 36.2; BMI 42.8
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
== END 2024-11-25 16:42 | disposition home or self-care (01) ==
LOC: HO.HMCH 15:41
PROVIDERS: PCP Internal Medicine; Visit Provider Internal Medicine
DX: Z00.00 Encounter for general adult medical examination without abnormal findings (principal); M65.30 Trigger finger, unspecified finger; E66.01 Morbid (severe) obesity due to excess calories; Z68.41 Body mass index [BMI] 40.0-44.9, adult; F33.0 Major depressive disorder, recurrent, mild

== ENCOUNTER → 2024-11-25 15:40 | Outpatient (BNVA) | payer OTHER, SELFPAY | PROVIDERS: PCP Internal Medicine; Visit Provider Internal Medicine | DX: Z00.00 Encounter for general adult medical examination without abnormal findings (principal); M65.342 Trigger finger, left ring finger; E66.01 Morbid (severe) obesity due to excess calories; Z68.41 Body mass index [BMI] 40.0-44.9, adult; F33.0 Major depressive disorder, recurrent, mild; M81.0 Age-related osteoporosis without current pathological fracture; Z13.31 Encounter for screening for depression | CPT/HCPCS: 96127; 99396 ==